=== PATIENT | male | born 1940 | race Caucasian/White ===

== ENCOUNTER 2021-11-08 14:17 | Observation (INO) ==
[2021-11-08] MEDS ORDERED: IOPAMIDOL 100 ML BOTTLE IV ONE (14:18)
[2021-11-08] MEDS ORDERED: LORazepam 2 MG/ML VIAL IV ONE (15:03)
--- NOTE | 2021-11-08 15:04 | Cat Scan Report ---
INDICATION: left UE weakness COMPARISON: Previous brain CT scans dated 10/18/2021, 07/18/2021, 10/25/2019 TECHNIQUE: Axial noncontrast-enhanced images through the brain. Sagittally and coronally reformatted images. FINDINGS: Cerebral hemispheres:No acute intracranial hemorrhage. No intra-axial hematoma. Large area of encephalomalacia consistent with old left middle cerebral artery territory infarction. This is unchanged. No new intra-axial attenuation abnormalities or localized mass effect. There is cerebral atrophy with ventricular enlargement. This is stable. Brainstem and cerebellum:No intra-axial abnormality Extra-axial:No acute hemorrhage. No subdural or epidural hematoma. No subarachnoid hemorrhage. Basilar cisterns are normal Calvarial:No calvarial fracture. No lytic lesion Temporal bones are negative. No destructive lesions Soft tissue, orbits, sinuses:Orbits and visualized facial soft tissues and paranasal sinuses are negative IMPRESSION: 1. 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 Cerebral atrophy with ventriculomegaly 3. No acute abnormality. No interval change since 10/18/2021 The exam was performed using radiation dose optimization techniques including, but not limited to, automated exposure control, adjustment of the mA and/or kV according to patient size and use of iterative reconstruction technique. Interpreted and Authenticated by: Gee Lara 11/08/21
[2021-11-08 15:07] LABS: POC Pro Time 23.4 (11.9-14.5)
--- NOTE | 2021-11-08 15:08 | Emergency Department Note ---
Neuro HPI <Cindy Clemens PA-C - Last Filed: 11/08/21 19:25> General Chief Complaint: Stroke Symptoms Stated Complaint: Stroke Time Seen by Provider: 11/08/21 14:40 Source: patient Mode of arrival: wheelchair Limitations: no limitations History of Present Illness HPI Narrative: 81-year-old male with history of stroke in October/2018 and residual dense right- sided hemiplegia with expressive aphasia and probable Warnicke's aphasia presents for left upper extremity weakness and inability to make a fist with loss of wrist extension. Last normal was 7 PM when he went to bed. His states that he woke up and showed her that he was unable to make a fist at about 530 this morning. The patient is on Eliquis for atrial fibrillation. Has a history of seizure disorder. Is on carvedilol for rate control of his A. fib. Takes a baby aspirin daily. EKG shows atrial fibrillation with rate of 64 bpm and no acute ST abnormalities to suggest ischemia. He does have PVCs. NIHSS is difficult to ascertain given his baseline deficits. Patient clearly has new left upper extremity weakness pe r his . The past medical history significant for chronic lower extremity edema and seizures. On Anticoagulants: Yes Related Data Home Medications Medication Instructions Recorded Confirmed glucosamine sulfate 500 mg tablet 500 mg PO DAILY tab 03/20/19 11/08/21 (Glucosamine) multivitamin 1 cap PO QAM 03/20/19 11/08/21 levetiracetam 500 mg tablet 2,000 mg PO QHS tab 09/21/20 11/08/21 (Keppra) cetirizine 10 mg tablet (Zyrtec) 10 mg PO DAILY 11/08/21 11/08/21 ferrous sulfate 325 mg (65 mg 325 mg PO DAILY 11/08/21 11/08/21 iron) tablet (Iron (ferrous sulfate)) Previous Rx's Medication Instructions Recorded aspirin 81 mg tablet,delayed 81 mg PO QDAY #1 tab 08/12/19 release (Aspir-) famotidine 20 mg tablet 20 mg PO QDAY #90 tab 07/12/20 apixaban 5 mg tablet (Eliquis) 5 mg PO BID #180 tab 12/06/20 atorvastatin 40 mg tablet 40 mg PO DAILY #90 tab 06/28/21 bumetanide 1 mg tablet 1 mg PO DAILY #90 tab 06/28/21 carvedilol 6.25 mg tablet 6.25 mg PO DAILY #90 tab 06/28/21 potassium chloride 20 mEq 40 meq PO DAILY #1 tab 07/19/21 tablet,extended release tramadol 50 mg tablet 50 mg PO BID PRN #30 tab 08/15/21 furosemide 20 mg tablet 20 mg PO BID #180 tab 10/17/21 Allergies Allergy/AdvReac Type Severity Reaction Status Date / Time No Known Drug Allergies Allergy Verified 11/08/21 14:21 Review of Systems <Cindy Clemens PA-C - Last Filed: 11/08/21 19:25> ROS ROS Narrative: Narrative: All systems ED: reviewed and negative except as stated. 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) Pruritus (Chronic) Allergic rhinitis with postnasal drip (Chronic) Dysphagia (Chronic) Chronic constipation (Chronic) Frequency of urination (Chronic) Lower urinary tract symptoms (Chronic) Expressive aphasia (Chronic) CVA (cerebral vascular accident) (Chronic) 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 Aphasia Cerebral infarction due to unspecified occlusion or stenosis of left middle cerebral artery October 2018. Residual deficits include expressive aphasia and right-sided hemiparesis. Continue Lipitor 40 mg daily. Check lipid panel. Start aspirin 81 mg daily. Blood pressure well controlled. No record of echocardiogram, will order echocardiogram with bubble study. Chronic constipation CVA (cerebral vascular accident) Dysarthria following cerebral infarction Dyslipidemia Dysphagia Dysphagia following cerebral infarction Essential hypertension Well-controlled. Takes carvedilol 6.25 mg once daily, and bumetanide 1 mg once daily. Expressive aphasia Secondary to CVA October 2018. Frequency of urination Gastro-esophageal reflux disease without esophagitis Well-controlled on famotidine. Hemiplegia and hemiparesis following unspecified cerebrovascular disease affecting right dominant side Hernia LLQ Hyperlipidemia, unspecified Well-controlled on Lipitor 40 mg daily Lower urinary tract symptoms Pruritus No rash. Counseled on warm rather than hot showers, showering every other day, Dove bar soap, apply moisturizer right after shower, and multiple times per day. Avoid scratching. Surgical History H/O left inguinal hernia repair 04/04/2019, Dr. Franco Ferreira. History of left inguinal hernia repair 04/04/2019 Status post insertion of percutaneous endoscopic gastrostomy (PEG) tube Family History Father Heart disease Other HTN (hypertension) Social History Smoking Status: Former smoker Alcohol Intake Frequency: holiday/special occasion only Exam <Cindy Clemens PA-C - Last Filed: 11/08/21 19:25> Narrative Narrative: General: AOx3, NAD, nontoxic appearing. Pleasant and conversant. HEENT: PERRL, EOMI, normocephalic. Moist mucous membranes. Normal facies and normal dentition. Chest: Symmetric, no pain to palpation Respiratory: Lungs clear to auscultation bilaterally. No respiratory distress. Unlabored breathing. Heart: Regular rate and rhythm, no murmurs/clicks/rubs. Abdomen: Non-tender, Non distended, normal bowel tones. No organomegaly. Extremities: Warm and well perfused. No edema. DP 2+ bilaterally. No venous stasis. Neuro: No focal deficits. Cranial nerves II-XII grossly normal. Right partial facial paralysis per with droop of the right corner of the mouth. Patient has expressive aphasia, which is also baseline per his . He has dense hemiplegia in the right side, also baseline. Regarding his left upper extremity and left lower extremity pronator drift is negative. He has loss of wrist extension and weakness with making a fist. He is sensate to light touch throughout. Biceps and triceps is 5/5 with resistance. Skin: Warm dry, no rashes or lesions, no cyanosis. Psych: Normal mood and affect Heme/Lymph: No abnormal bruising General Limitations: no limitations Course <Cindy Clemens PA-C - Last Filed: 11/08/21 19:25> Course Course Narrative: 81-year-old male presents with new onset left upper extremity weakness Reevaluation(s) Reevaluation #1: Given time of onset was less than 24 hours code stroke was called. I discussed with the telestroke neurologist and they recommend CTA of the head and neck and if LVO is present then endovascular consult. CT of the head is negative for acute intracranial bleeding or findings. And shows old left middle cerebral artery infarct with encephalomalacia and no changes from 10/18/2021. Reevaluation #2: CTA of the head and neck shows no intracranial branch occlusion, no [place] occlusion, no aneurysm, no AVM and normal vertebral arteries. No hemodynamically significant carotid artery stenosis. No evidence of LVO. I spoke with Dr. Pierce, stroke neurology and he recommends admission with MRI and continuation of his Eliquis/aspirin/atorvastatin. Vital Signs Vital signs: Vital Signs Temperature 97.5 F 11/08/21 14:18 Pulse Rate 84 11/08/21 14:18 Respiratory Rate 18 11/08/21 14:18 Blood Pressure 110/59 11/08/21 14:18 Pulse Oximetry (%) 98 11/08/21 14:18 Temperature 97.5 F 11/08/21 14:18 Pulse Rate 75 11/08/21 18:31 Respiratory Rate 21 11/08/21 19:01 Blood Pressure 101/54 11/08/21 19:01 Pulse Oximetry (%) 100 11/08/21 18:31 MDM <Cindy Clemens PA-C - Last Filed: 11/08/21 19:25> MDM Narrative Medical decision making narrative: Left upper extremity neurological deficits consistent with stroke No evidence of large vessel occlusion or intracranial bleed on imaging today. I have spoken with Dr. Pierce, stroke neurology and he recommends admission with observation MRI in the next day or 2. Patient will likely need PT OT and skilled therapies given his new deficits. I have reached out to the hospitalist for admission and and waiting a call back. Hospitalist has accepted the patient for admission. Lab Data Result diagrams: 11/08/21 15:00 11/08/21 15:00 Labs: Lab Results 11/08/21 11/08/21 11/08/21 Range/Units 15:00 15:00 15:00 WBC 6.2 (4.5-11.0) K/mcL RBC 4.28 L (4.63-6.08) M/mcL Hgb 11.6 L (13.7-17.5) g/dL Hct 37.8 L (40.1-51.0) % MCV 88.3 (80.0-100.0) fL MCH 27.1 (26.0-34.0) pg MCHC 30.7 L (31.0-36.0) g/dL RDW 15.1 H (11.5-14.5) % Plt Count 276 (140-440) K/mcL MPV 9.9 (7.4-10.4) fL Neut % (Auto) 62.1 (38.0-78.0) % Lymph % (Auto) 23.8 (15.5-49.0) % [place] % (Auto) 9.3 (1.0-12.0) % Eos % (Auto) 4.2 (0.0-7.0) % Baso % (Auto) 0.6 (0.0-2.0) % Lymph # (Auto) 1.48 L (1.50-4.80) K/mcL [place] # (Auto) 0.58 (0.10-0.90) K/mcL Eos # (Auto) 0.26 (0.00-0.70) K/mcL Baso # (Auto) 0.04 (0.00-0.30) K/mcL Absolute Neutrophils 3.85 (1.80-8.00) K/mcL POC PT (11.9-14.5) PT 16.3 H (11.9-14.5) sec POC INR (0.8-1.2) INR 1.3 H (0.9-1.1) APTT 37.5 H (20.0-37.0) sec Sodium 138 (133-145) mmol/L Potassium 4.2 (3.3-5.1) mmol/L Chloride 101 (96-108) mmol/L Carbon Dioxide 28 (22-30) mmol/L Anion Gap 9.0 (8.0-16.0) BUN 18 (8-23) mg/dL Creatinine 1.0 (0.7-1.2) mg/dL GFR Calculation 69 Glucose 122 H (70-105) mg/dL Calcium 9.4 (8.6-10.4) mg/dL Total Bilirubin 0.8 (0.1-1.0) mg/dL AST 28 (<40) U/L ALT 20 (<40) U/L Alkaline Phosphatase 106 (39-117) U/L Troponin T (<0.03) ng/mL Total Protein 6.6 (5.9-8.4) gm/dL Albumin 3.6 (3.2-5.2) gm/dL Globulin 3.0 (2.2-3.7) gm/dL Albumin/Globulin Ratio 1.2 (1.0-2.3) 11/08/21 11/08/21 Range/Units 15:00 15:03 WBC (4.5-11.0) K/mcL RBC (4.63-6.08) M/mcL Hgb (13.7-17.5) g/dL Hct (40.1-51.0) % MCV (80.0-100.0) fL MCH (26.0-34.0) pg MCHC (31.0-36.0) g/dL RDW (11.5-14.5) % Plt Count (140-440) K/mcL MPV (7.4-10.4) fL Neut % (Auto) (38.0-78.0) % Lymph % (Auto) (15.5-49.0) % [place] % (Auto) (1.0-12.0) % Eos % (Auto) (0.0-7.0) % Baso % (Auto) (0.0-2.0) % Lymph # (Auto) (1.50-4.80) K/mcL [place] # (Auto) (0.10-0.90) K/mcL Eos # (Auto) (0.00-0.70) K/mcL Baso # (Auto) (0.00-0.30) K/mcL Absolute Neutrophils (1.80-8.00) K/mcL POC PT 23.4 H (11.9-14.5) PT (11.9-14.5) sec POC INR 2.0 H (0.8-1.2) INR (0.9-1.1) APTT (20.0-37.0) sec Sodium (133-145) mmol/L Potassium (3.3-5.1) mmol/L Chloride (96-108) mmol/L Carbon Dioxide (22-30) mmol/L Anion Gap (8.0-16.0) BUN (8-23) mg/dL Creatinine (0.7-1.2) mg/dL GFR Calculation Glucose (70-105) mg/dL Calcium (8.6-10.4) mg/dL Total Bilirubin (0.1-1.0) mg/dL AST (<40) U/L ALT (<40) U/L Alkaline Phosphatase (39-117) U/L Troponin T 0.02 (<0.03) ng/mL Total Protein (5.9-8.4) gm/dL Albumin (3.2-5.2) gm/dL Globulin (2.2-3.7) gm/dL Albumin/Globulin Ratio (1.0-2.3) Discharge Plan Patient/Caregiver Discharge Instructions Pt seen by DIRECTOR PACKAGING/PA only: Yes Clinical Impression: CVA (cerebral vascular accident) Patient Disposition: Xfer As Inpt ([facility]) Follow up with: Gee Ochoa DO [Primary Care Provider] - Prescriptions: No Action famotidine 20 mg tablet 20 mg PO QDAY Qty: 90 3RF Eliquis 5 mg tablet 5 mg PO BID Qty: 180 3RF atorvastatin 40 mg tablet 40 mg PO DAILY Qty: 90 3RF bumetanide 1 mg tablet 1 mg PO DAILY Qty: 90 3RF carvedilol 6.25 mg tablet 6.25 mg PO DAILY Qty: 90 3RF tramadol 50 mg tablet 50 mg PO BID PRN (Reason: pain) Qty: 30 2RF furosemide 20 mg tablet 20 mg PO BID Qty: 180 3RF multivitamin capsule 1 cap PO QAM 0RF glucosamine sulfate [Glucosamine] 500 mg tablet 500 mg PO DAILY 0RF aspirin [Aspir-81] 81 mg tablet,delayed release (DR/EC) 81 mg PO QDAY Qty: 1 0RF levetiracetam [Keppra] 500 mg tablet 2,000 mg PO QHS 0RF potassium chloride 20 mEq tablet extended release 40 meq PO DAILY Qty: 1 0RF cetirizine [Zyrtec] 10 mg Tablet 10 mg PO DAILY 0RF ferrous sulfate [Iron (ferrous sulfate)] 325 mg (65 mg iron) Tablet 325 mg PO DAILY 0RF
[2021-11-08 16:04] LABS: Basophils # (Auto) 0.04 K/mcL (0.00-0.30); Basophils % (Auto) 0.6 % (0.0-2.0); Eosinophils # (Auto) 0.26 K/mcL (0.00-0.70); Eosinophils % (Auto) 4.2 % (0.0-7.0); Hematocrit 37.8 % (40.1-51.0); Hemoglobin 11.6 g/dL (13.7-17.5); Lymphocytes # (Auto) 1.48 K/mcL (1.50-4.80); Lymphocytes % (Auto) 23.8 % (15.5-49.0); Mean Cell Volume 88.3 fL (80.0-100.0); Mean Corpuscular HGB Conc 30.7 g/dL (31.0-36.0); Mean Platelet Volume 9.9 fL (7.4-10.4); Monocytes # (Auto) 0.58 K/mcL (0.10-0.90); Monocytes % (Auto) 9.3 % (1.0-12.0); Neutrophils % (Auto) 62.1 % (38.0-78.0); Platelet Count 276 K/mcL (140-440); RBC 4.28 M/mcL (4.63-6.08); Red Cell Distribution Width 15.1 % (11.5-14.5); WBC 6.2 K/mcL (4.5-11.0)
[2021-11-08 16:24] LABS: ALT/SGPT 20 U/L (<40); AST/SGOT 28 U/L (<40); Albumin 3.6 gm/dL (3.2-5.2); Albumin/Globulin Ratio 1.2 (1.0-2.3); Alkaline Phosphatase 106 U/L (39-117); Bilirubin,Total 0.8 mg/dL (0.1-1.0); Blood Urea Nitrogen 18 mg/dL (8-23); Calcium 9.4 mg/dL (8.6-10.4); Carbon Dioxide 28 mmol/L (22-30); Chloride 101 mmol/L (96-108); Glomerular Filtration Rate 69; Glucose 122 mg/dL (70-105); INR 1.3 (0.9-1.1); Partial Thromboplastin Time 37.5 sec (20.0-37.0); Prothrombin Time 16.3 sec (11.9-14.5)
--- NOTE | 2021-11-08 16:39 | Cat Scan Report ---
INDICATION: stroke COMPARISON: Noncontrast enhanced brain CT scans dated 11/08/2021, 10/18/2021 TECHNIQUE: Axial images were obtained through the upper chest, neck, and head during arterial phase. MIP and CPR reformatted images. 80ml Isovue 370 injected intravenously. FINDINGS: AORTIC ARCH: Minimal calcified atherosclerotic plaque. Origins of the left subclavian artery, left vertebral artery, left common carotid artery, innominate artery, right common carotid artery, right subclavian artery, right vertebral artery are negative. No origin stenosis. CAROTID ARTERIES:Right: Right common carotid artery is negative. No stenosis or occlusion. Calcified plaque at the origin of the right internal carotid artery. No hemodynamically significant stenosis or evidence for ulceration. There is no soft plaque or thrombus. Right internal carotid artery is otherwise negative. No stenosis or occlusion. No fibromuscular dysplasia or dissection. Left: Left common carotid artery is negative. No stenosis or occlusion Calcified plaque at the origin of left internal carotid artery. No significant stenosis. No evidence for ulceration. There is no soft plaque or thrombus. Left internal carotid artery is otherwise negative. There is no stenosis or occlusion. No dissection or evidence for fibromuscular dysplasia VERTEBRAL ARTERIES:Vertebral arteries are patent without stenosis or occlusion [place]:[Cavernous and supraclinoid internal carotid arteries are negative. No significant stenosis or occlusion. M1 segments of the middle cerebral arteries and A1 segments of the anterior cerebral arteries are negative. Intracranial vertebral arteries and basilar artery are negative. Posterior cerebral arteries and superior cerebellar arteries are negative] INTRACRANIAL CIRCULATION:No intracranial branch occlusion. No arteriovenous malformation or aneurysm No dural sinus occlusion UPPER CHEST:There are pleural calcifications in the left upper hemithorax. There is a focal subpleural pulmonary parenchymal density. This is masslike and malignancy is possible. This may be benign scarring. Scan of the chest may be appropriate for further evaluation. NECK:No solid or cystic soft tissue mass. No pathologic lymphadenopathy. BRAIN:Large area of encephalomalacia consistent with chronic infarction left middle cerebral artery distribution. No intracranial hemorrhage. No intra-axial enhancement or localized mass effect. IMPRESSION: 1. Calcified plaque in the proximal internal carotid artery bilaterally. There is no significant soft plaque or ulceration. There is no hemodynamically significant stenosis 2. Negative [place]. No branch occlusion 3. Large area of encephalomalacia in the left middle cerebral artery distribution 4. Pleural calcification and pleural based mass density in the left upper lobe. Chest CT scan recommended further evaluation is appropriate The exam was performed using radiation dose optimization techniques including, but not limited to, automated exposure control, adjustment of the mA and/or kV according to patient size and use of iterative reconstruction technique. Interpreted and Authenticated by: Gee Lara 11/08/21
[2021-11-08] MEDS ORDERED: 0.9 % SODIUM CHLORIDE 500 ML IV ONE ×2 (17:04→20:38)
--- NOTE | 2021-11-08 19:24 | Internal Med History&Physical ---
HPI History of Present Illness Patient information: Note initiated : 11/08/21 at 7:17 pm Service Date, if different from initiated Date: [] Patient: Connor Roy a 81 y/o M admitted on for Stroke. Chief Complaint: [] History of present illness: Mr. Roy is a 81 year old M Brought into ED by because of left upper extremity weakness. History is obtained from chart and notes as patient has expressive aphasia. Per when he woke up he showed her that he was unable to make a fist. 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 According to nurse he did take his aspirin this morning. In the ED he had a CTA of the head and neck which showed no acute findings or thrombosis but did show the left hemispheric encephalomalacia from the previous stroke. Case discussed with stroke neurology [place] who recommended observation and MRI. 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) Pruritus (Chronic) Allergic rhinitis with postnasal drip (Chronic) Dysphagia (Chronic) Chronic constipation (Chronic) Frequency of urination (Chronic) Lower urinary tract symptoms (Chronic) Expressive aphasia (Chronic) CVA (cerebral vascular accident) (Chronic) 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 Aphasia Cerebral infarction due to unspecified occlusion or stenosis of left middle cerebral artery October 2018. Residual deficits include expressive aphasia and right-sided hemiparesis. Continue Lipitor 40 mg daily. Check lipid panel. Start aspirin 81 mg daily. Blood pressure well controlled. No record of echocardiogram, will order echocardiogram with bubble study. Chronic constipation CVA (cerebral vascular accident) Dysarthria following cerebral infarction Dyslipidemia Dysphagia Dysphagia following cerebral infarction Essential hypertension Well-controlled. Takes carvedilol 6.25 mg once daily, and bumetanide 1 mg once daily. Expressive aphasia Secondary to CVA October 2018. Frequency of urination Gastro-esophageal reflux disease without esophagitis Well-controlled on famotidine. Hemiplegia and hemiparesis following unspecified cerebrovascular disease affecting right dominant side Hernia LLQ Hyperlipidemia, unspecified Well-controlled on Lipitor 40 mg daily Lower urinary tract symptoms Pruritus No rash. Counseled on warm rather than hot showers, showering every other day, Dove bar soap, apply moisturizer right after shower, and multiple times per day. Avoid scratching. Surgical History H/O left inguinal hernia repair 04/04/2019, Dr. Franco Ferreira. History of left inguinal hernia repair 04/04/2019 Status post insertion of percutaneous endoscopic gastrostomy (PEG) tube Family History Father Heart disease Other HTN (hypertension) Social History marital status: occupational status: retired smoking status: Former smoker quit date: 06/11/04 alcohol intake frequency: holiday/special occasion only MEDS/ALLERGIES Home Medications and Allergies Home Medications Medication Instructions Recorded Confirmed Type glucosamine sulfate 500 mg tablet 500 mg PO DAILY tab 03/20/19 11/08/21 History (Glucosamine) multivitamin 1 cap PO QAM 03/20/19 11/08/21 History aspirin 81 mg tablet,delayed 81 mg PO QDAY #1 tab 08/12/19 11/08/21 Rx release (Aspir-) famotidine 20 mg tablet 20 mg PO QDAY #90 tab 07/12/20 11/08/21 Rx levetiracetam 500 mg tablet 2,000 mg PO QHS tab 09/21/20 11/08/21 History ([place]ri[place]) apixaban 5 mg tablet (Eliquis) 5 mg PO BID #180 tab 12/06/20 11/08/21 Rx atorvastatin 40 mg tablet 40 mg PO DAILY #90 tab 06/28/21 11/08/21 Rx bumetanide 1 mg tablet 1 mg PO DAILY #90 tab 06/28/21 11/08/21 Rx carvedilol 6.25 mg tablet 6.25 mg PO DAILY #90 tab 06/28/21 11/08/21 Rx potassium chloride 20 mEq 40 meq PO DAILY #1 tab 07/19/21 11/08/21 Rx tablet,extended release tramadol 50 mg tablet 50 mg PO BID PRN #30 tab 08/15/21 11/08/21 Rx furosemide 20 mg tablet 20 mg PO BID #180 tab 10/17/21 11/08/21 Rx cetirizine 10 mg tablet (Zyrtec) 10 mg PO DAILY 11/08/21 11/08/21 History ferrous sulfate 325 mg (65 mg 325 mg PO DAILY 11/08/21 11/08/21 History iron) tablet (Iron (ferrous sulfate)) Allergies Allergy/AdvReac Type Severity Reaction Status Date / Time No Known Drug Allergies Allergy Verified 11/08/21 14:21 EXAM Constitutional Vitals: Temp Pulse Resp BP Pulse Ox 97.5 F 75 14 96/58 100 11/08/21 14:18 11/08/21 18:31 11/08/21 18:56 11/08/21 18:31 11/08/21 18:31 Exam: General: Alert, Awake, No acute Distress Eyes/N/T: EOMI, PERRL, Head/Neck: neck supple, normocephalic atraumatic CV: irreg irreg, No murmurs, normal s1/s2 Pulm: Clear b/l, no wheezing/rhonchi/rales Abd: soft, nontender, +BS x4 Ext: no clubbing/cyanosis, b/l LE 2-3+ edema Neuro: Right-sided hemiplegia chronic, left side weakness UE>LE, follows commands, expressive aphasia Skin: warm/dry DATA Data Completed and Pending Labs: Labs from last 24 hours 11/08/21 11/08/21 11/08/21 15:03 15:00 15:00 WBC RBC Hgb Hct MCV MCH MCHC RDW Plt Count MPV Neut % (Auto) Lymph % (Auto) [place] % (Auto) Eos % (Auto) Baso % (Auto) Lymph # (Auto) [place] # (Auto) Eos # (Auto) Baso # (Auto) Absolute Neutrophils POC PT 23.4 H PT POC INR 2.0 H INR APTT Sodium 138 Potassium 4.2 Chloride 101 Carbon Dioxide 28 Anion Gap 9.0 BUN 18 Creatinine 1.0 GFR Calculation 69 Glucose 122 H Calcium 9.4 Total Bilirubin 0.8 AST 28 ALT 20 Alkaline Phosphatase 106 Troponin T 0.02 Total Protein 6.6 Albumin 3.6 Globulin 3.0 Albumin/Globulin Ratio 1.2 11/08/21 11/08/21 15:00 15:00 WBC 6.2 RBC 4.28 L Hgb 11.6 L Hct 37.8 L MCV 88.3 MCH 27.1 MCHC 30.7 L RDW 15.1 H Plt Count 276 MPV 9.9 Neut % (Auto) 62.1 Lymph % (Auto) 23.8 [place] % (Auto) 9.3 Eos % (Auto) 4.2 Baso % (Auto) 0.6 Lymph # (Auto) 1.48 L [place] # (Auto) 0.58 Eos # (Auto) 0.26 Baso # (Auto) 0.04 Absolute Neutrophils 3.85 POC PT PT 16.3 H POC INR INR 1.3 H APTT 37.5 H Sodium Potassium Chloride Carbon Dioxide Anion Gap BUN Creatinine GFR Calculation Glucose Calcium Total Bilirubin AST ALT Alkaline Phosphatase Troponin T Total Protein Albumin Globulin Albumin/Globulin Ratio A/P Narrative A/P Narrative: A: *Left UE weakness: -ABCD=5 *h/o CVA w/residual Right hemiplegia and Expressive Aphasia: *Permanent Afib: on apixaban and ASA and BB *h/o Seizure d/o: on keppra *Generalized weakness/deconditioning/debility/poor functional status: wheelchair bound *Anemia, chronic, BI: cont iron *GERD: *Peripheral edema: On diuretics P: -cont apixaban/asa/statin -MRI/echo pending -Permissive HTN if develops -hold diuretics for now and IV hydrate -Comp wraps and elevate legs -cont BB -cont keppra -check UA -IVF -ST eval -CM for placement -ppx: Apixaban/home H2 Time Spent With Patient Time: Total time spent is greater than 50% in coordination of care (as documented) at patient's floor/unit and/or counseling patient: Total time spent with greater than 50% in coordination of care (as documented) at patient's floor/unit and/or counseling patient:: Greater than 70 minutes
[2021-11-08] MEDS ORDERED: SENNOSIDES 1 TABLET PO PRN (20:38)
[2021-11-08] MEDS ORDERED: METOPROLOL TARTRATE 5 MG/5 ML VIAL IV PRN (20:38)
[2021-11-08] MEDS ORDERED: IPRATROPIUM/ALBUTEROL 3 ML AMPUL.NEB NEB PRN (20:38)
[2021-11-08] MEDS ORDERED: traMADol (PP) 50 MG TABLET (#4) PO PRN (20:38)
[2021-11-08] MEDS ORDERED: MAGNESIUM SULFATE 2 GM/50 ML BAG IV PRN (20:38)
[2021-11-08] MEDS ORDERED: POTASSIUM CHLORIDE 20 MEQ TABLET PO PRN ×2 (20:38)
[2021-11-08] MEDS ORDERED: POTASSIUM CHLORIDE 40 MEQ in DEXTROSE 5% IN WATER 500 ML IV PRN (20:38)
[2021-11-08] MEDS ORDERED: POLYETHYLENE GLYCOL 3350 17 GM PACKET PO PRN (20:38)
[2021-11-08] MEDS ORDERED: ONDANSETRON 4 MG/2 ML VIAL IV PRN (20:38)
[2021-11-08] MEDS: DOCUSATE SODIUM 100 MG CAPSULE PO SCH (21:23)
[2021-11-08] MEDS: levETIRAcetam 500 MG TABLET PO SCH (21:23)
[2021-11-08] MEDS: APIXABAN 5 MG TABLET PO SCH (21:23)
[2021-11-08] MEDS: 0.9 % SODIUM CHLORIDE 10 ML SYRINGE IV SCH (21:24)
[2021-11-08] MEDS: traMADol 50 MG TABLET PO PRN (22:24)
[2021-11-08 23:35] LABS: Appearance,Urine Clear (Clear); Bilirubin,Urine Negative (Negative); Color,Urine Yellow; Culture Indicated,Urine No; Glucose,Urine (UA) Negative (Negative); Ketones,Urine Trace mg/dL (Negative); Leukocyte Esterase,Urine Negative /uL (Negative); Nitrate,Urine Negative (Negative); PH,Urine 6.5 (5.0-9.0); Protein,Urine Negative (Negative); Specific Gravity,Urine 1.015 (1.000-1.035); Urine Blood Negative ery/mcL (Negative); Urobilinogen,Urine Normal
[2021-11-09] MEDS: 0.9 % SODIUM CHLORIDE 10 ML SYRINGE IV SCH ×3 (05:55→20:20)
[2021-11-09 07:00] LABS: ALT/SGPT 16 U/L (<40); AST/SGOT 24 U/L (<40); Albumin 2.9 gm/dL (3.2-5.2); Albumin/Globulin Ratio 1.1 (1.0-2.3); Alkaline Phosphatase 88 U/L (39-117); Bilirubin,Direct 0.2 mg/dL (<0.3); Bilirubin,Total 0.8 mg/dL (0.1-1.0); Blood Urea Nitrogen 11 mg/dL (8-23); Calcium 8.8 mg/dL (8.6-10.4); Carbon Dioxide 25 mmol/L (22-30); Chloride 105 mmol/L (96-108); Globulin 2.7 gm/dL (2.2-3.7); Glomerular Filtration Rate 78; Glucose 90 mg/dL (70-105); Lactate Dehydrogenase 208 U/L (135-225); Triglycerides 48 mg/dL (<150); Uric Acid 6.5 mg/dL (2.5-8.0)
[2021-11-09] MEDS: APIXABAN 5 MG TABLET PO SCH ×2 (07:57→20:20)
[2021-11-09] MEDS: DOCUSATE SODIUM 100 MG CAPSULE PO SCH ×2 (07:57→20:21)
[2021-11-09] MEDS: ASPIRIN 81 MG TAB.CHEW PO SCH (07:57)
[2021-11-09] MEDS: ATORVASTATIN 40 MG TABLET PO SCH (07:57)
[2021-11-09] MEDS: FAMOTIDINE 20 MG TABLET PO SCH (07:57)
--- NOTE | 2021-11-09 08:09 | Internal Med Progress Note ---
SUBJECTIVE Subjective Patient information: Note initiated : 11/09/21 at 8:05 am Service Date, if different from initiated Date: [] Patient: Connor Roy 81 y/o M admitted on 11/08/21 for Stroke. Chief Complaint: [] Interval history: History of present illness: Mr. Roy is a 81 year old M Brought into ED by because of left upper extremity weakness. History is obtained from chart and notes as patient has expressive aphasia. Per when he woke up he showed her that he was unable to make a fist. 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 According to nurse he did take his aspirin this morning. In the ED he had a CTA of the head and neck which showed no acute findings or thrombosis but did show the left hemispheric encephalomalacia from the previous stroke. Case discussed with stroke neurology [place] who recommended observation and MRI. 11/09 Seems to move his left hand more today. Awaiting MRI. Echo pending. Vital signs stable. Review of Systems: Unable to obtain due to expressive aphasia Constitutional Vitals: Vital Signs Temp Pulse Resp BP Pulse Ox 98.7 F 73 15 137/77 100 11/09/21 00:01 11/09/21 06:57 11/09/21 06:57 11/09/21 06:01 11/09/21 06:57 Period Temp Pulse Resp BP Sys/Garcia Pulse Ox Last 24 Hr 97.5 F-98.7 F 56-84 10-31 91-142/47-77 95-100 Intake and Output 11/08/21 11/09/21 11/09/21 21:59 05:59 13:59 Intake Total 500 920 Output Total 600 125 Balance 500 320 -125 Weight 82.418 kg Intake & Output: Intake & Output 11/08/21 11/09/21 11/09/21 21:59 05:59 13:59 Intake Total 500 920 Output Total 600 125 Balance 500 320 -125 Weight 82.418 kg Intake: IV 500 500 Sodium Chloride 0.9% 500 ml @ 500 75 mls/hr IV .[id number] ONE Rx#: [id number] Sodium Chloride 0.9% 500 ml @ 500 Wide Open IV BOLUS ONE Rx#: [id number] Oral 420 Output: Urine Catheter Amount 350 Straight 350 Void Amount 250 125 Other: Urine Appearance Clear Clear Straight Clear Urine Color Dark Yellow Dark Yellow Straight Dark Yellow Exam: General: Alert, Awake, No acute Distress Eyes/N/T: EOMI, Head/Neck: neck supple, CV: irreg irreg, No murmurs, Pulm: Lear b/l, no wheezing/rhonchi/rales Abd: soft, nontender, +BS x4 Ext: no clubbing/cyanosis, b/l LE 2-3+ edema Neuro: Right-sided hemiplegia chronic, left hand weakness, able to make a fist today, follows commands, expressive aphasia Skin: warm/dry OBJ DATA Labs CBC & Chem 7: 11/08/21 15:00 11/09/21 05:27 Labs: Abnormal Lab Results 11/09/21 11/08/21 11/08/21 05:27 23:01 15:03 RBC Hgb Hct MCHC RDW Lymph # (Auto) POC PT 23.4 H PT POC INR 2.0 H INR APTT Glucose Total Protein 5.6 L Albumin 2.9 L Urine Ketones Trace A 11/08/21 11/08/21 11/08/21 15:00 15:00 15:00 RBC 4.28 L Hgb 11.6 L Hct 37.8 L MCHC 30.7 L RDW 15.1 H Lymph # (Auto) 1.48 L POC PT PT 16.3 H POC INR INR 1.3 H APTT 37.5 H Glucose 122 H Total Protein Albumin Urine Ketones Meds: Medications Acetaminophen (Acetaminophen 325 Mg Tablet) 650 mg PO Q6HP PRN; Protocol PRN Reason: Per Pain Protocol/Fever > 101 Albuterol/Ipratropium (Ipratropium/Albuterol 3 Ml Ampul.Neb) 3 ml NEB Q4HP PRN PRN Reason: Shortness Of Breath Apixaban (Apixaban 5 Mg Tablet) 5 mg PO BID [facility] Last Admin: 11/09/21 07:57 Dose: 5 mg Documented by: Aspirin (Aspirin 81 Mg Tab.Chew) 81 mg PO QDAY [facility] Last Admin: 11/09/21 07:57 Dose: 81 mg Documented by: Atorvastatin Calcium (Atorvastatin 40 Mg Tablet) 40 mg PO DAILY [facility] Last Admin: 11/09/21 07:57 Dose: 40 mg Documented by: Carvedilol (Carvedilol 6.25 Mg Tablet) 6.25 mg PO DAILY [facility] Last Admin: 11/09/21 07:57 Dose: 6.25 mg Documented by: Docusate Sodium (Docusate Sodium 100 Mg Capsule) 100 mg PO BID [facility] Last Admin: 11/09/21 07:57 Dose: 100 mg Documented by: Famotidine (Famotidine 20 Mg Tablet) 20 mg PO QDAY [facility] Last Admin: 11/09/21 07:57 Dose: 20 mg Documented by: Potassium Chloride 40 meq/ (Dextrose) 520 mls @ 130 mls/hr IV UD PRN PRN Reason: Potassium < 3 Magnesium Sulfate (Magnesium Sulfate) 2 gm in 50 mls @ 50 mls/hr IV UD PRN PRN Reason: Magnesium </= 1.6 Levetiracetam (Levetiracetam 500 Mg Tablet) 2,000 mg PO QHS [facility] Last Admin: 11/08/21 21:23 Dose: 2,000 mg Documented by: Metoprolol Tartrate (Metoprolol Tartrate 5 Mg/5 Ml Vial) 5 mg IV Q2HP PRN PRN Reason: Tachyarrhythmias HR>110 Ondansetron HCl (Ondansetron 4 Mg/2 Ml Vial) 4 mg IV Q4HP PRN PRN Reason: Nausea And Vomiting Polyethylene Glycol (Polyethylene Glycol 3350 17 Gm Packet) 17 gm PO DAILYP PRN PRN Reason: Constipation Potassium Chloride (Potassium Chloride 20 Meq Tablet) 40 meq PO UD PRN PRN Reason: Potssium is 3-3.5 Potassium Chloride (Potassium Chloride 20 Meq Tablet) 40 meq PO UD PRN PRN Reason: Potassium < 3 Senna (Sennosides 1 Tablet) 2 tab PO DAILYP PRN PRN Reason: Constipation Sodium Chloride (0.9 % Sodium Chloride 10 Ml Syringe) 10 ml IV Q8 [facility] Last Admin: 11/09/21 05:55 Dose: 10 ml Documented by: Tramadol HCl (Tramadol 50 Mg Tablet) 50 mg PO BIDP PRN; Protocol PRN Reason: Per Pain Protocol Last Admin: 11/08/21 22:24 Dose: 50 mg Documented by: A/P Narrative A/P Narrative: A: *Left UE weakness: -ABCD=5 *h/o CVA w/residual Right hemiplegia and Expressive Aphasia: *Permanent Afib: on apixaban and ASA and BB *h/o Seizure d/o: on keppra *Generalized weakness/deconditioning/debility/poor functional status: wheelchair bound *Anemia, chronic, BI: cont iron *GERD: *Peripheral edema: On diuretics P: -cont apixaban/asa/statin -MRI/echo pending -Permissive HTN if develops -hold diuretics for now and IV hydrate -Comp wraps and elevate legs -restart home BB gradually -cont keppra -s/p IVF -ST eval -CM for placement -ppx: Apixaban/home H2 DNR Time Spent With Patient Time: Total time spent is greater than 50% in coordination of care (as documented) at patient's floor/unit and/or counseling patient: Total time spent with greater than 50% in coordination of care (as documented) at patient's floor/unit and/or counseling patient:: 25 - 35 minutes QUALITY Stroke Symptom Onset Unknown: Yes
[2021-11-09] MEDS ORDERED: CARVEDILOL 6.25 MG TABLET PO SCH ×2 (09:00)
--- NOTE | 2021-11-09 13:28 | Discharge Summary ---
Discharge Provider Provider IMPORTANT FOLLOW-UP INFORMATION FOR PCP: Patient information: Note initiated : 11/09/21 at 1:26 pm Service Date, if different from initiated Date: [] Patient: Connor Roy 81 y/o M admitted on 11/08/21 for Stroke. Chief Complaint: [] Date of admission: 11/08/21 20:27 Primary care physician: Gee Ochoa DO Consults: 11/08/21 14:44 Consult to Physician [CONS] Stat Comment: Consulting Provider: Telestroke,Provider Reason For Exam: Physician to Consult 11/08/21 18:07 Consult to Physician [CONS] Stat Comment: Consulting Provider: Carl Back Reason For Exam: Physician to Consult COURSE Hospital Course Hospital course: History of present illness: Mr. Roy is a 81 year old M Brought into ED by because of left upper extremity weakness. History is obtained from chart and notes as patient has expressive aphasia. Per when he woke up he showed her that he was unable to make a fist. 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 According to nurse he did take his aspirin this morning. In the ED he had a CTA of the head and neck which showed no acute findings or thrombosis but did show the left hemispheric encephalomalacia from the previous stroke. Case discussed with stroke neurology [place] who recommended observation and MRI. 11/09 Seems to move his left hand more today. Awaiting MRI. Echo pending. Vital signs stable. 11/10 No changes overnight. Patient moving his left arm, suspect back to baseline. MRI showed no acute stroke. A: *Left UE/hand weakness: ?etiology -ABCD=5 -MRI not showing any acute infarct *h/o CVA w/residual Right hemiplegia and Expressive Aphasia: *Permanent Afib: on apixaban and ASA and BB *h/o Seizure d/o: on keppra *Generalized weakness/deconditioning/debility/poor functional status: wheelchair bound *Oropharyngeal Dysphagia, Moderate: *Anemia, chronic, BI: cont iron *GERD: *Peripheral edema: On diuretics P: -CM for placement Discharge diagnosis: Strokelike symptoms history of stroke Secondary discharge diagnosis: Room and A. fib history of seizure generalized weakness deconditioning poor functional status GERD peripheral edema anemia Time Spent with Patient Time attestation: Total time spent providing and/or coordinating discharge services: Time spent: Greater than 30 minutes EXAM Constitutional Vitals: Temp Pulse Resp BP Pulse Ox 97.8 F 65 12 109/61 100 11/09/21 12:01 11/09/21 08:01 11/09/21 12:06 11/09/21 12:01 11/09/21 12:06 Discharge Data Data Completed and Pending Labs on day of discharge: Labs from last 24 hours 11/09/21 11/08/21 11/08/21 05:27 23:01 15:03 WBC RBC Hgb Hct MCV MCH MCHC RDW Plt Count MPV Neut % (Auto) Lymph % (Auto) [place] % (Auto) Eos % (Auto) Baso % (Auto) Lymph # (Auto) [place] # (Auto) Eos # (Auto) Baso # (Auto) Absolute Neutrophils POC PT 23.4 H PT POC INR 2.0 H INR APTT Sodium 139 Potassium 4.2 Chloride 105 Carbon Dioxide 25 Anion Gap 9.0 BUN 11 Creatinine 0.9 GFR Calculation 78 Glucose 90 Uric Acid 6.5 Calcium 8.8 Phosphorus 3.0 Magnesium 1.8 Total Bilirubin 0.8 Direct Bilirubin 0.2 GGT 15 AST 24 ALT 16 Alkaline Phosphatase 88 Lactate Dehydrogenase 208 Troponin T Total Protein 5.6 L Albumin 2.9 L Globulin 2.7 Albumin/Globulin Ratio 1.1 Triglycerides 48 Urine Color Yellow Urine Appearance Clear Urine pH 6.5 Ur Specific [place] 1.015 Urine Protein Negative Urine Glucose (UA) Negative Urine Ketones Trace A Urine Occult Blood Negative Urine Nitrate Negative Urine Bilirubin Negative Urine Urobilinogen Normal Ur Leukocyte Esterase Negative Ur Culture Indicated? No 11/08/21 11/08/21 11/08/21 15:00 15:00 15:00 WBC RBC Hgb Hct MCV MCH MCHC RDW Plt Count MPV Neut % (Auto) Lymph % (Auto) [place] % (Auto) Eos % (Auto) Baso % (Auto) Lymph # (Auto) [place] # (Auto) Eos # (Auto) Baso # (Auto) Absolute Neutrophils POC PT PT 16.3 H POC INR INR 1.3 H APTT 37.5 H Sodium 138 Potassium 4.2 Chloride 101 Carbon Dioxide 28 Anion Gap 9.0 BUN 18 Creatinine 1.0 GFR Calculation 69 Glucose 122 H Uric Acid Calcium 9.4 Phosphorus Magnesium Total Bilirubin 0.8 Direct Bilirubin GGT AST 28 ALT 20 Alkaline Phosphatase 106 Lactate Dehydrogenase Troponin T 0.02 Total Protein 6.6 Albumin 3.6 Globulin 3.0 Albumin/Globulin Ratio 1.2 Triglycerides Urine Color Urine Appearance Urine pH Ur Specific [place] Urine Protein Urine Glucose (UA) Urine Ketones Urine Occult Blood Urine Nitrate Urine Bilirubin Urine Urobilinogen Ur Leukocyte Esterase Ur Culture Indicated? 11/08/21 15:00 WBC 6.2 RBC 4.28 L Hgb 11.6 L Hct 37.8 L MCV 88.3 MCH 27.1 MCHC 30.7 L RDW 15.1 H Plt Count 276 MPV 9.9 Neut % (Auto) 62.1 Lymph % (Auto) 23.8 [place] % (Auto) 9.3 Eos % (Auto) 4.2 Baso % (Auto) 0.6 Lymph # (Auto) 1.48 L [place] # (Auto) 0.58 Eos # (Auto) 0.26 Baso # (Auto) 0.04 Absolute Neutrophils 3.85 POC PT PT POC INR INR APTT Sodium Potassium Chloride Carbon Dioxide Anion Gap BUN Creatinine GFR Calculation Glucose Uric Acid Calcium Phosphorus Magnesium Total Bilirubin Direct Bilirubin GGT AST ALT Alkaline Phosphatase Lactate Dehydrogenase Troponin T Total Protein Albumin Globulin Albumin/Globulin Ratio Triglycerides Urine Color Urine Appearance Urine pH Ur Specific [place] Urine Protein Urine Glucose (UA) Urine Ketones Urine Occult Blood Urine Nitrate Urine Bilirubin Urine Urobilinogen Ur Leukocyte Esterase Ur Culture Indicated? Discharge Plan Patient/Caregiver Discharge Instructions Activity: increase activity as tolerated Activity Restrictions/Additional Instructions: Diet per Speech Therapy Prescriptions: Continued famotidine 20 mg tablet 20 mg PO QDAY Qty: 90 3RF Eliquis 5 mg tablet 5 mg PO BID Qty: 180 3RF atorvastatin 40 mg tablet 40 mg PO DAILY Qty: 90 3RF bumetanide 1 mg tablet 1 mg PO DAILY Qty: 90 3RF carvedilol 6.25 mg tablet 6.25 mg PO DAILY Qty: 90 3RF tramadol 50 mg tablet 50 mg PO BID PRN (Reason: pain) Qty: 30 2RF furosemide 20 mg tablet 20 mg PO BID Qty: 180 3RF multivitamin capsule 1 cap PO QAM 0RF glucosamine sulfate [Glucosamine] 500 mg tablet 500 mg PO DAILY 0RF aspirin [Aspir-81] 81 mg tablet,delayed release (DR/EC) 81 mg PO QDAY Qty: 1 0RF levetiracetam [Keppra] 500 mg tablet 2,000 mg PO QHS 0RF potassium chloride 20 mEq tablet extended release 40 meq PO DAILY Qty: 1 0RF cetirizine [Zyrtec] 10 mg Tablet 10 mg PO DAILY 0RF ferrous sulfate [Iron (ferrous sulfate)] 325 mg (65 mg iron) Tablet 325 mg PO DAILY 0RF Follow Up Plan Follow up with: Gee Ochoa DO [Primary Care Provider] - Patient Disposition: Xfer SNF Prognosis: Undetermined Rehab Potential: Fair I certify that the patient requires SNF services: Yes Overall status at discharge: patient is progressing back to baseline
[2021-11-09] MEDS ORDERED: LORazepam 2 MG/ML VIAL IV ONE (14:37)
[2021-11-09] MEDS ORDERED: LORazepam 2 MG/ML VIAL ONE (14:51)
--- NOTE | 2021-11-09 15:38 | Magnetic Resonance Report ---
INDICATION: left side deficits (arm) TECHNIQUE: Limited MRI scan of the brain. Sagittal T1 weighted images. Axial T2 FLAIR images. Axial diffusion-weighted images with ADC map COMPARISON: Previous brain CT scan dated 11/08/2021 FINDINGS: Large area of encephalomalacia in the left middle cerebral artery territory. There is cerebral atrophy. There is no restricted diffusion. No acute infarction. Right cerebral hemisphere is negative. Brainstem and cerebellum are negative. IMPRESSION: 1. No restricted diffusion. No acute infarction 2. Encephalomalacia consistent with remote left middle cerebral artery distribution infarction Interpreted and Authenticated by: Gee Lara 11/09/21
[2021-11-09] MEDS: traMADol 50 MG TABLET PO PRN (20:20)
[2021-11-09] MEDS: levETIRAcetam 500 MG TABLET PO SCH (20:20)
[2021-11-10] MEDS: 0.9 % SODIUM CHLORIDE 10 ML SYRINGE IV SCH ×3 (05:37→21:06)
--- NOTE | 2021-11-10 08:02 | Internal Med Progress Note ---
SUBJECTIVE Subjective Patient information: Note initiated : 11/10/21 at 7:58 am Service Date, if different from initiated Date: [] Patient: Connor Roy 81 y/o M admitted on 11/08/21 for Stroke. Chief Complaint: [] Interval history: History of present illness: Mr. Roy is a 81 year old M Brought into ED by because of left upper extremity weakness. History is obtained from chart and notes as patient has expressive aphasia. Per when he woke up he showed her that he was unable to make a fist. 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 According to nurse he did take his aspirin this morning. In the ED he had a CTA of the head and neck which showed no acute findings or thrombosis but did show the left hemispheric encephalomalacia from the previous stroke. Case discussed with stroke neurology [place] who recommended observation and MRI. 11/09 Seems to move his left hand more today. Awaiting MRI. Echo pending. Vital signs stable. 11/10 No changes overnight. Patient moving his left arm, suspect back to baseline. MRI showed no acute stroke. Review of Systems: Unable to obtain due to expressive aphasia Constitutional Vitals: Vital Signs Temp Pulse Resp BP Pulse Ox 97.6 F 65 18 142/90 98 11/10/21 04:01 11/09/21 08:01 11/10/21 06:01 11/10/21 06:01 11/10/21 06:01 Period Temp Pulse Resp BP Sys/Garica Pulse Ox Last 24 Hr 97.2 F-97.8 F 65 12-26 102-162/49-130 90-100 Intake and Output 11/09/21 11/10/21 11/10/21 21:59 05:59 13:59 Intake Total 360 Output Total 600 200 Balance -240 -200 Weight 82.1 kg Intake & Output: Intake & Output 11/09/21 11/10/21 11/10/21 21:59 05:59 13:59 Intake Total 360 Output Total 600 200 Balance -240 -200 Weight 82.1 kg Intake: Oral 360 Output: Void Amount 600 200 Other: Meal Nourishment/Supplement Percent of Meal Consumed 100% Feeding Ability Total Assistance Urine Appearance Clear Clear Urine Color Bright Yellow Bright Yellow Exam: General: Alert, Awake, No acute Distress Eyes/N/T: EOMI, Head/Neck: neck supple, CV: irreg irreg, No murmurs, Pulm: Lear b/l, no wheezing/rhonchi/rales Abd: soft, nontender, +BS x4 Ext: no clubbing/cyanosis, b/l LE 2-3+ edema Neuro: Right-sided hemiplegia chronic, able to raise left arm and makes partial fist on the left, follows commands, expressive aphasia Skin: warm/dry OBJ DATA Labs CBC & Chem 7: 11/08/21 15:00 11/09/21 05:27 Labs: Abnormal Lab Results 11/09/21 11/08/21 11/08/21 05:27 23:01 15:03 RBC Hgb Hct MCHC RDW Lymph # (Auto) POC PT 23.4 H PT POC INR 2.0 H INR APTT Glucose Total Protein 5.6 L Albumin 2.9 L Urine Ketones Trace A 11/08/21 11/08/21 11/08/21 15:00 15:00 15:00 RBC 4.28 L Hgb 11.6 L Hct 37.8 L MCHC 30.7 L RDW 15.1 H Lymph # (Auto) 1.48 L POC PT PT 16.3 H POC INR INR 1.3 H APTT 37.5 H Glucose 122 H Total Protein Albumin Urine Ketones Meds: Medications Acetaminophen (Acetaminophen 325 Mg Tablet) 650 mg PO Q6HP PRN; Protocol PRN Reason: Per Pain Protocol/Fever > 101 Albuterol/Ipratropium (Ipratropium/Albuterol 3 Ml Ampul.Neb) 3 ml NEB Q4HP PRN PRN Reason: Shortness Of Breath Apixaban (Apixaban 5 Mg Tablet) 5 mg PO BID [facility] Last Admin: 11/09/21 20:20 Dose: 5 mg Documented by: Aspirin (Aspirin 81 Mg Tab.Chew) 81 mg PO QDAY [facility] Last Admin: 11/09/21 07:57 Dose: 81 mg Documented by: Atorvastatin Calcium (Atorvastatin 40 Mg Tablet) 40 mg PO DAILY [facility] Last Admin: 11/09/21 07:57 Dose: 40 mg Documented by: Carvedilol (Carvedilol 6.25 Mg Tablet) 3.125 mg PO DAILY [facility] Last Admin: 11/09/21 08:22 Dose: Not Given Documented by: Docusate Sodium (Docusate Sodium 100 Mg Capsule) 100 mg PO BID [facility] Last Admin: 11/09/21 20:21 Dose: 100 mg Documented by: Famotidine (Famotidine 20 Mg Tablet) 20 mg PO QDAY [facility] Last Admin: 11/09/21 07:57 Dose: 20 mg Documented by: Potassium Chloride 40 meq/ (Dextrose) 520 mls @ 130 mls/hr IV UD PRN PRN Reason: Potassium < 3 Magnesium Sulfate (Magnesium Sulfate) 2 gm in 50 mls @ 50 mls/hr IV UD PRN PRN Reason: Magnesium </= 1.6 Levetiracetam (Levetiracetam 500 Mg Tablet) 2,000 mg PO QHS [facility] Last Admin: 11/09/21 20:20 Dose: 2,000 mg Documented by: Metoprolol Tartrate (Metoprolol Tartrate 5 Mg/5 Ml Vial) 5 mg IV Q2HP PRN PRN Reason: Tachyarrhythmias HR>110 Ondansetron HCl (Ondansetron 4 Mg/2 Ml Vial) 4 mg IV Q4HP PRN PRN Reason: Nausea And Vomiting Polyethylene Glycol (Polyethylene Glycol 3350 17 Gm Packet) 17 gm PO DAILYP PRN PRN Reason: Constipation Potassium Chloride (Potassium Chloride 20 Meq Tablet) 40 meq PO UD PRN PRN Reason: Potssium is 3-3.5 Potassium Chloride (Potassium Chloride 20 Meq Tablet) 40 meq PO UD PRN PRN Reason: Potassium < 3 Senna (Sennosides 1 Tablet) 2 tab PO DAILYP PRN PRN Reason: Constipation Sodium Chloride (0.9 % Sodium Chloride 10 Ml Syringe) 10 ml IV Q8 [facility] Last Admin: 11/10/21 05:37 Dose: 10 ml Documented by: Tramadol HCl (Tramadol 50 Mg Tablet) 50 mg PO BIDP PRN; Protocol PRN Reason: Per Pain Protocol Last Admin: 11/09/21 20:20 Dose: 50 mg Documented by: A/P Narrative A/P Narrative: A: *Left UE/hand weakness: improved -ABCD=5 -MRI not showing any acute infarct *h/o CVA w/residual Right hemiplegia and Expressive Aphasia: *Permanent Afib: on apixaban and ASA and BB *h/o Seizure d/o: on keppra *Generalized weakness/deconditioning/debility/poor functional status: wheelchair bound *Oropharyngeal Dysphagia, Moderate: *Anemia, chronic, BI: cont iron *GERD: *Peripheral edema: On diuretics P: -cont apixaban/asa/statin -restart diuretics -Comp wraps and elevate legs -restarted home BB -cont keppra -diet per ST -swallow study pending -CM for placement -ppx: Apixaban/home H2 DNR Time Spent With Patient Time: Total time spent is greater than 50% in coordination of care (as documented) at patient's floor/unit and/or counseling patient: Total time spent with greater than 50% in coordination of care (as documented) at patient's floor/unit and/or counseling patient:: 25 - 35 minutes QUALITY Stroke Symptom Onset Unknown: Yes
[2021-11-10] MEDS: ASPIRIN 81 MG TAB.CHEW PO SCH (08:54)
[2021-11-10] MEDS: ATORVASTATIN 40 MG TABLET PO SCH (08:55)
[2021-11-10] MEDS: FAMOTIDINE 20 MG TABLET PO SCH (08:55)
[2021-11-10] MEDS: CARVEDILOL 6.25 MG TABLET PO SCH (08:55)
[2021-11-10] MEDS: APIXABAN 5 MG TABLET PO SCH ×3 (08:55→21:25)
[2021-11-10] MEDS: BUMETANIDE 1 MG TABLET PO SCH (08:55)
[2021-11-10] MEDS: DOCUSATE SODIUM 100 MG CAPSULE PO SCH ×3 (08:55→21:25)
[2021-11-10] MEDS: ACETAMINOPHEN 325 MG TABLET PO PRN ×2 (13:00→21:11)
--- NOTE | 2021-11-10 13:15 | XRay Report ---
INDICATION: ?aspiration TECHNIQUE: Modified barium swallow was performed by the speech pathologist. 10 seconds fluoroscopy utilized COMPARISON: None. FINDINGS: The patient ingested thin liquid. There is no airway penetration or aspiration. 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 No zygomatic or diverticulum. IMPRESSION: 1. Cricopharyngeal dysmotility 2. No airway penetration or aspiration Interpreted and Authenticated by: Gee Lara 11/10/21
[2021-11-10] MEDS: levETIRAcetam 500 MG TABLET PO SCH ×2 (21:06→21:25)
[2021-11-11] MEDS: 0.9 % SODIUM CHLORIDE 10 ML SYRINGE IV SCH ×3 (04:32→20:58)
--- NOTE | 2021-11-11 07:01 | EKG ---
[facility] Test Date: 2021-11-08 Pat Name: Connor Roy Department: ED Room: Gender: Male [employer] Strategist: : 1940 Requested By: Cindy Clemens Order Number: [id number] Reading MD: Daron Hwang Measurements Intervals [place] Rate: 64 P: NV: QRS: 66 QRSD: 69 T: 48 QT: 437 QTc: 451 Interpretive Statements Atrial fibrillation Electronically Signed On 11-11-2021 7:01:35 PDT by Daron Hwang /store/M0/[id number]/[id number].pdf
[2021-11-11] MEDS: DOCUSATE SODIUM 100 MG CAPSULE PO SCH ×2 (08:10→20:59)
[2021-11-11] MEDS: ATORVASTATIN 40 MG TABLET PO SCH (08:10)
[2021-11-11] MEDS: APIXABAN 5 MG TABLET PO SCH ×2 (08:10→20:59)
[2021-11-11] MEDS: BUMETANIDE 1 MG TABLET PO SCH (08:10)
[2021-11-11] MEDS: ASPIRIN 81 MG TAB.CHEW PO SCH (08:11)
[2021-11-11] MEDS: CARVEDILOL 6.25 MG TABLET PO SCH (08:11)
[2021-11-11] MEDS: FAMOTIDINE 20 MG TABLET PO SCH (08:12)
--- NOTE | 2021-11-11 11:07 | Internal Med Progress Note ---
SUBJECTIVE Subjective Patient information: Note initiated : 11/11/21 at 11:05 am Service Date, if different from initiated Date: [] Patient: Connor Roy 81 y/o M admitted on 11/08/21 for Stroke. Chief Complaint: [] Interval history: History of present illness: Mr. Roy is a 81 year old M Brought into ED by because of left upper extremity weakness. History is obtained from chart and notes as patient has expressive aphasia. Per when he woke up he showed her that he was unable to make a fist. 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 According to nurse he did take his aspirin this morning. In the ED he had a CTA of the head and neck which showed no acute findings or thrombosis but did show the left hemispheric encephalomalacia from the previous stroke. Case discussed with stroke neurology [place] who recommended observation and MRI. 11/09 Seems to move his left hand more today. Awaiting MRI. Echo pending. Vital signs stable. 11/10 No changes overnight. Patient moving his left arm, suspect back to baseline. MRI showed no acute stroke. 11/11 Patient sitting up in bed. No new complaints. Awaiting placement. Review of Systems: Unable to obtain due to expressive aphasia Constitutional Vitals: Vital Signs Temp Pulse Resp BP Pulse Ox 99.3 F H 83 17 126/71 95 11/11/21 07:37 11/11/21 07:37 11/11/21 07:37 11/11/21 07:37 11/11/21 07:37 Period Temp Pulse Resp BP Sys/Garcia Pulse Ox Last 24 Hr 97.6 F-99.6 F 67-85 16-18 118-143/67-77 95-98 Intake and Output 11/10/21 11/11/21 11/11/21 21:59 05:59 13:59 Intake Total 120 600 Output Total 600 375 450 Balance -600 -255 150 Weight 81.556 kg Intake & Output: Intake & Output 11/10/21 11/11/21 11/11/21 21:59 05:59 13:59 Intake Total 120 600 Output Total 600 375 450 Balance -600 -255 150 Weight 81.556 kg Intake: Oral 120 600 Output: Void Amount 600 375 450 # of times incontinent of urine 0 0 Other: Meal Breakfast Percent of Meal Consumed 50% Feeding Ability Total Assistance Urine Appearance Clear Clear Clear Urine Color Dark Yellow Dark Yellow Dark Yellow Urine Odor Normal # Voids 0 0 # Bowel Movements 0 0 # of times incontinent of 0 0 Bowels Exam: General: Alert, Awake, No acute Distress Eyes/N/T: EOMI, Head/Neck: neck supple, CV: irreg irreg, No murmurs, Pulm: Lear b/l, no wheezing/rhonchi/rales Abd: soft, nontender, +BS x4 Ext: no clubbing/cyanosis, b/l LE 2-3+ edema Neuro: Right-sided hemiplegia chronic, able to raise left arm and makes partial fist on the left, follows commands, expressive aphasia Skin: warm/dry OBJ DATA Labs CBC & Chem 7: 11/08/21 15:00 11/09/21 05:27 Labs: Abnormal Lab Results 11/09/21 11/08/21 11/08/21 05:27 23:01 15:03 RBC Hgb Hct MCHC RDW Lymph # (Auto) POC PT 23.4 H PT POC INR 2.0 H INR APTT Glucose Total Protein 5.6 L Albumin 2.9 L Urine Ketones Trace A 11/08/21 11/08/21 11/08/21 15:00 15:00 15:00 RBC 4.28 L Hgb 11.6 L Hct 37.8 L MCHC 30.7 L RDW 15.1 H Lymph # (Auto) 1.48 L POC PT PT 16.3 H POC INR INR 1.3 H APTT 37.5 H Glucose 122 H Total Protein Albumin Urine Ketones Meds: Medications Acetaminophen (Acetaminophen 325 Mg Tablet) 650 mg PO Q6HP PRN; Protocol PRN Reason: Per Pain Protocol/Fever > 101 Last Admin: 11/10/21 13:00 Dose: 650 mg Documented by: Albuterol/Ipratropium (Ipratropium/Albuterol 3 Ml Ampul.Neb) 3 ml NEB Q4HP PRN PRN Reason: Shortness Of Breath Apixaban (Apixaban 5 Mg Tablet) 5 mg PO BID [facility] Last Admin: 11/11/21 08:10 Dose: 5 mg Documented by: Aspirin (Aspirin 81 Mg Tab.Chew) 81 mg PO QDAY [facility] Last Admin: 11/11/21 08:11 Dose: 81 mg Documented by: Atorvastatin Calcium (Atorvastatin 40 Mg Tablet) 40 mg PO DAILY [facility] Last Admin: 11/11/21 08:10 Dose: 40 mg Documented by: Bumetanide (Bumetanide 1 Mg Tablet) 1 mg PO DAILY [facility] Last Admin: 11/11/21 08:10 Dose: 1 mg Documented by: Carvedilol (Carvedilol 6.25 Mg Tablet) 6.25 mg PO DAILY [facility] Last Admin: 11/11/21 08:11 Dose: 6.25 mg Documented by: Docusate Sodium (Docusate Sodium 100 Mg Capsule) 100 mg PO BID [facility] Last Admin: 11/11/21 08:10 Dose: 100 mg Documented by: Famotidine (Famotidine 20 Mg Tablet) 20 mg PO QDAY [facility] Last Admin: 11/11/21 08:12 Dose: 20 mg Documented by: Potassium Chloride 40 meq/ (Dextrose) 520 mls @ 130 mls/hr IV UD PRN PRN Reason: Potassium < 3 Magnesium Sulfate (Magnesium Sulfate) 2 gm in 50 mls @ 50 mls/hr IV UD PRN PRN Reason: Magnesium </= 1.6 Levetiracetam (Levetiracetam 500 Mg Tablet) 2,000 mg PO QHS [facility] Last Admin: 11/10/21 21:25 Dose: Not Given Documented by: Metoprolol Tartrate (Metoprolol Tartrate 5 Mg/5 Ml Vial) 5 mg IV Q2HP PRN PRN Reason: Tachyarrhythmias HR>110 Ondansetron HCl (Ondansetron 4 Mg/2 Ml Vial) 4 mg IV Q4HP PRN PRN Reason: Nausea And Vomiting Polyethylene Glycol (Polyethylene Glycol 3350 17 Gm Packet) 17 gm PO DAILYP PRN PRN Reason: Constipation Potassium Chloride (Potassium Chloride 20 Meq Tablet) 40 meq PO UD PRN PRN Reason: Potssium is 3-3.5 Potassium Chloride (Potassium Chloride 20 Meq Tablet) 40 meq PO UD PRN PRN Reason: Potassium < 3 Senna (Sennosides 1 Tablet) 2 tab PO DAILYP PRN PRN Reason: Constipation Sodium Chloride (0.9 % Sodium Chloride 10 Ml Syringe) 10 ml IV Q8 [facility] Last Admin: 06/03/22 04:32 Dose: 10 ml Documented by: Tramadol HCl (Tramadol 50 Mg Tablet) 50 mg PO BIDP PRN; Protocol PRN Reason: Per Pain Protocol Last Admin: 11/09/21 20:20 Dose: 50 mg Documented by: A/P Narrative A/P Narrative: A: *Left UE/hand weakness: improved -ABCD=5 -MRI not showing any acute infarct *h/o CVA w/residual Right hemiplegia and Expressive Aphasia: *Permanent Afib: on apixaban and ASA and BB *h/o Seizure d/o: on keppra *Generalized weakness/deconditioning/debility/poor functional status: wheelchair bound *Oropharyngeal Dysphagia, Moderate: *Anemia, chronic, BI: cont iron *GERD: *Peripheral edema: On diuretics P: -cont apixaban/asa/statin -cont home diuretics -Comp wraps and elevate legs -restarted home BB -cont keppra -diet per ST, regular -CM for placement -ppx: Apixaban/home H2 DNR Time Spent With Patient Time: Total time spent is greater than 50% in coordination of care (as documented) at patient's floor/unit and/or counseling patient: QUALITY Stroke Symptom Onset Unknown: Yes
[2021-11-11] MEDS: levETIRAcetam 500 MG TABLET PO SCH (20:59)
[2021-11-12] MEDS: 0.9 % SODIUM CHLORIDE 10 ML SYRINGE IV SCH ×3 (05:40→20:44)
--- NOTE | 2021-11-12 07:31 | Internal Med Progress Note ---
SUBJECTIVE Subjective Patient information: Note initiated : 11/12/21 at 7:30 am Service Date, if different from initiated Date: [] Patient: Connor Roy 81 y/o M admitted on 11/08/21 for Stroke. Chief Complaint: [] Interval history: History of present illness: Mr. Roy is a 81 year old M Brought into ED by because of left upper extremity weakness. History is obtained from chart and notes as patient has expressive aphasia. Per when he woke up he showed her that he was unable to make a fist. 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 According to nurse he did take his aspirin this morning. In the ED he had a CTA of the head and neck which showed no acute findings or thrombosis but did show the left hemispheric encephalomalacia from the previous stroke. Case discussed with stroke neurology [place] who recommended observation and MRI. 11/09 Seems to move his left hand more today. Awaiting MRI. Echo pending. Vital signs stable. 11/10 No changes overnight. Patient moving his left arm, suspect back to baseline. MRI showed no acute stroke. 11/11 Patient sitting up in bed. No new complaints. Awaiting placement. 11/12 Patient talkative but given expressive aphasia, is not understandable. Occasionally clear meaningful word will be said. Review of Systems: Unable to obtain due to expressive aphasia Constitutional Vitals: Vital Signs Temp Pulse Resp BP Pulse Ox 98.8 F 89 16 125/80 100 11/12/21 02:15 11/12/21 02:15 11/12/21 02:15 11/12/21 02:15 11/12/21 02:15 Period Temp Pulse Resp BP Sys/Garcia Pulse Ox Last 24 Hr 98.4 F-99.5 F 68-89 16-17 119-147/65-80 95-100 Intake and Output 11/11/21 11/12/21 11/12/21 21:59 05:59 13:59 Intake Total 360 120 Output Total 150 250 Balance 210 -130 Weight 78.744 kg Intake & Output: Intake & Output 11/11/21 11/12/21 11/12/21 21:59 05:59 13:59 Intake Total 360 120 Output Total 150 250 Balance 210 -130 Weight 78.744 kg Intake: Oral 360 120 Output: Void Amount 150 250 Other: Meal Dinner Percent of Meal Consumed 50% Feeding Ability Total Assistance Exam: General: Alert, Awake, No acute Distress Eyes/N/T: EOMI, Head/Neck: neck supple, CV: irreg irreg, No murmurs, Pulm: Lear b/l, no wheezing/rhonchi/rales Abd: soft, nontender, +BS x4 Ext: no clubbing/cyanosis, b/l LE 2-3+ edema Neuro: Right-sided hemiplegia chronic, able to raise left arm and makes partial fist on the left, follows commands, expressive aphasia Skin: warm/dry OBJ DATA Labs CBC & Chem 7: 11/08/21 15:00 11/09/21 05:27 Meds: Medications Acetaminophen (Acetaminophen 325 Mg Tablet) 650 mg PO Q6HP PRN; Protocol PRN Reason: Per Pain Protocol/Fever > 101 Last Admin: 11/10/21 13:00 Dose: 650 mg Documented by: Albuterol/Ipratropium (Ipratropium/Albuterol 3 Ml Ampul.Neb) 3 ml NEB Q4HP PRN PRN Reason: Shortness Of Breath Apixaban (Apixaban 5 Mg Tablet) 5 mg PO BID [facility] Last Admin: 11/11/21 20:59 Dose: 5 mg Documented by: Aspirin (Aspirin 81 Mg Tab.Chew) 81 mg PO QDAY [facility] Last Admin: 11/11/21 08:11 Dose: 81 mg Documented by: Atorvastatin Calcium (Atorvastatin 40 Mg Tablet) 40 mg PO DAILY [facility] Last Admin: 11/11/21 08:10 Dose: 40 mg Documented by: Bumetanide (Bumetanide 1 Mg Tablet) 1 mg PO DAILY [facility] Last Admin: 11/11/21 08:10 Dose: 1 mg Documented by: Carvedilol (Carvedilol 6.25 Mg Tablet) 6.25 mg PO DAILY [facility] Last Admin: 11/11/21 08:11 Dose: 6.25 mg Documented by: Docusate Sodium (Docusate Sodium 100 Mg Capsule) 100 mg PO BID [facility] Last Admin: 11/11/21 20:59 Dose: 100 mg Documented by: Famotidine (Famotidine 20 Mg Tablet) 20 mg PO QDAY [facility] Last Admin: 11/11/21 08:12 Dose: 20 mg Documented by: Potassium Chloride 40 meq/ (Dextrose) 520 mls @ 130 mls/hr IV UD PRN PRN Reason: Potassium < 3 Magnesium Sulfate (Magnesium Sulfate) 2 gm in 50 mls @ 50 mls/hr IV UD PRN PRN Reason: Magnesium </= 1.6 Levetiracetam (Levetiracetam 500 Mg Tablet) 2,000 mg PO QHS [facility] Last Admin: 11/11/21 20:59 Dose: 2,000 mg Documented by: Metoprolol Tartrate (Metoprolol Tartrate 5 Mg/5 Ml Vial) 5 mg IV Q2HP PRN PRN Reason: Tachyarrhythmias HR>110 Ondansetron HCl (Ondansetron 4 Mg/2 Ml Vial) 4 mg IV Q4HP PRN PRN Reason: Nausea And Vomiting Polyethylene Glycol (Polyethylene Glycol 3350 17 Gm Packet) 17 gm PO DAILYP PRN PRN Reason: Constipation Potassium Chloride (Potassium Chloride 20 Meq Tablet) 40 meq PO UD PRN PRN Reason: Potssium is 3-3.5 Potassium Chloride (Potassium Chloride 20 Meq Tablet) 40 meq PO UD PRN PRN Reason: Potassium < 3 Senna (Sennosides 1 Tablet) 2 tab PO DAILYP PRN PRN Reason: Constipation Sodium Chloride (0.9 % Sodium Chloride 10 Ml Syringe) 10 ml IV Q8 [facility] Last Admin: 11/12/21 05:40 Dose: Not Given Documented by: Tramadol HCl (Tramadol 50 Mg Tablet) 50 mg PO BIDP PRN; Protocol PRN Reason: Per Pain Protocol Last Admin: 11/09/21 20:20 Dose: 50 mg Documented by: A/P Narrative A/P Narrative: A: *Left UE/hand weakness: improved -ABCD=5 -MRI not showing any acute infarct *h/o CVA w/residual Right hemiplegia and Expressive Aphasia: *Permanent Afib: on apixaban and ASA and BB *h/o Seizure d/o: on keppra *Generalized weakness/deconditioning/debility/poor functional status: wheelchair bound *Oropharyngeal Dysphagia, Moderate: *Anemia, chronic, BI: cont iron *GERD: *Peripheral edema: On diuretics P: -cont apixaban/asa/statin -cont home diuretics -Comp wraps and elevate legs -restarted home BB -cont keppra -diet per ST, regular -CM for placement, awaiting -ppx: Apixaban/home H2 DNR Time Spent With Patient Time: Total time spent is greater than 50% in coordination of care (as documented) at patient's floor/unit and/or counseling patient: QUALITY Stroke Symptom Onset Unknown: Yes
[2021-11-12] MEDS: ATORVASTATIN 40 MG TABLET PO SCH (08:55)
[2021-11-12] MEDS: ASPIRIN 81 MG TAB.CHEW PO SCH (08:55)
[2021-11-12] MEDS: FAMOTIDINE 20 MG TABLET PO SCH (08:55)
[2021-11-12] MEDS: CARVEDILOL 6.25 MG TABLET PO SCH (08:56)
[2021-11-12] MEDS: APIXABAN 5 MG TABLET PO SCH ×2 (08:56→20:43)
[2021-11-12] MEDS: DOCUSATE SODIUM 100 MG CAPSULE PO SCH ×2 (08:56→20:43)
[2021-11-12] MEDS: BUMETANIDE 1 MG TABLET PO SCH (08:56)
[2021-11-12] MEDS: levETIRAcetam 500 MG TABLET PO SCH (20:43)
[2021-11-12] MEDS: ACETAMINOPHEN 325 MG TABLET PO PRN (20:45)
[2021-11-13] MEDS: 0.9 % SODIUM CHLORIDE 10 ML SYRINGE IV SCH ×3 (05:20→20:45)
--- NOTE | 2021-11-13 07:50 | Internal Med Progress Note ---
SUBJECTIVE Subjective Patient information: Note initiated : 11/13/21 at 7:50 am Service Date, if different from initiated Date: [] Patient: Connor Roy 81 y/o M admitted on 11/08/21 for Stroke. Chief Complaint: [] Interval history: History of present illness: Mr. Roy is a 81 year old M Brought into ED by because of left upper extremity weakness. History is obtained from chart and notes as patient has expressive aphasia. Per when he woke up he showed her that he was unable to make a fist. 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 According to nurse he did take his aspirin this morning. In the ED he had a CTA of the head and neck which showed no acute findings or thrombosis but did show the left hemispheric encephalomalacia from the previous stroke. Case discussed with stroke neurology [place] who recommended observation and MRI. 11/09 Seems to move his left hand more today. Awaiting MRI. Echo pending. Vital signs stable. 6/2 No changes overnight. Patient moving his left arm, suspect back to baseline. MRI showed no acute stroke. 6/3 Patient sitting up in bed. No new complaints. Awaiting placement. 6/4 Patient talkative but given expressive aphasia, is not understandable. Occasionally clear meaningful word will be said. 6/5 No overnight event or new complaints. Awaiting placement. Review of Systems: Unable to obtain due to expressive aphasia Constitutional Vitals: Vital Signs Temp Pulse Resp BP Pulse Ox 98.0 F 79 16 99/59 97 11/13/21 03:11 11/13/21 03:11 11/13/21 03:11 11/13/21 03:11 11/13/21 03:11 Period Temp Pulse Resp BP Sys/Garcia Pulse Ox Last 24 Hr 97.8 F-98.7 F 67-79 14-16 99-111/54-60 97-99 Intake and Output 11/12/21 11/13/21 11/13/21 21:59 05:59 13:59 Intake Total 530 480 Output Total 200 575 Balance 330 -95 Weight 76.34 kg Intake & Output: Intake & Output 11/12/21 11/13/21 11/13/21 21:59 05:59 13:59 Intake Total 530 480 Output Total 200 575 Balance 330 -95 Weight 76.34 kg Intake: Oral 530 480 Output: Void Amount 200 575 Other: Meal Dinner Percent of Meal Consumed 10 Feeding Ability Total Assistance Urine Appearance Clear Clear Urine Color Pale Straw # of times incontinent of 1 Bowels Exam: General: Alert, Awake, No acute Distress Eyes/N/T: EOMI, Head/Neck: neck supple, CV: irreg irreg, No murmurs, Pulm: Lear b/l, no wheezing/rhonchi/rales Abd: soft, nontender, +BS x4 Ext: no clubbing/cyanosis, b/l LE 2-3+ edema Neuro: Right-sided hemiplegia chronic, follows commands, expressive aphasia Skin: warm/dry OBJ DATA Labs CBC & Chem 7: 11/08/21 15:00 11/09/21 05:27 Meds: Medications Acetaminophen (Acetaminophen 325 Mg Tablet) 650 mg PO Q6HP PRN; Protocol PRN Reason: Per Pain Protocol/Fever > 101 Last Admin: 11/12/21 20:45 Dose: 650 mg Documented by: Albuterol/Ipratropium (Ipratropium/Albuterol 3 Ml Ampul.Neb) 3 ml NEB Q4HP PRN PRN Reason: Shortness Of Breath Apixaban (Apixaban 5 Mg Tablet) 5 mg PO BID [facility] Last Admin: 11/12/21 20:43 Dose: 5 mg Documented by: Aspirin (Aspirin 81 Mg Tab.Chew) 81 mg PO QDAY [facility] Last Admin: 11/12/21 08:55 Dose: 81 mg Documented by: Atorvastatin Calcium (Atorvastatin 40 Mg Tablet) 40 mg PO DAILY [facility] Last Admin: 11/12/21 08:55 Dose: 40 mg Documented by: Bumetanide (Bumetanide 1 Mg Tablet) 1 mg PO DAILY [facility] Last Admin: 11/12/21 08:56 Dose: 1 mg Documented by: Carvedilol (Carvedilol 6.25 Mg Tablet) 6.25 mg PO DAILY [facility] Last Admin: 11/12/21 08:56 Dose: 6.25 mg Documented by: Docusate Sodium (Docusate Sodium 100 Mg Capsule) 100 mg PO BID [facility] Last Admin: 11/12/21 20:43 Dose: 100 mg Documented by: Famotidine (Famotidine 20 Mg Tablet) 20 mg PO QDAY [facility] Last Admin: 11/12/21 08:55 Dose: 20 mg Documented by: Potassium Chloride 40 meq/ (Dextrose) 520 mls @ 130 mls/hr IV UD PRN PRN Reason: Potassium < 3 Magnesium Sulfate (Magnesium Sulfate) 2 gm in 50 mls @ 50 mls/hr IV UD PRN PRN Reason: Magnesium </= 1.6 Levetiracetam (Levetiracetam 500 Mg Tablet) 2,000 mg PO QHS [facility] Last Admin: 11/12/21 20:43 Dose: 2,000 mg Documented by: Metoprolol Tartrate (Metoprolol Tartrate 5 Mg/5 Ml Vial) 5 mg IV Q2HP PRN PRN Reason: Tachyarrhythmias HR>110 Ondansetron HCl (Ondansetron 4 Mg/2 Ml Vial) 4 mg IV Q4HP PRN PRN Reason: Nausea And Vomiting Polyethylene Glycol (Polyethylene Glycol 3350 17 Gm Packet) 17 gm PO DAILYP PRN PRN Reason: Constipation Potassium Chloride (Potassium Chloride 20 Meq Tablet) 40 meq PO UD PRN PRN Reason: Potssium is 3-3.5 Potassium Chloride (Potassium Chloride 20 Meq Tablet) 40 meq PO UD PRN PRN Reason: Potassium < 3 Senna (Sennosides 1 Tablet) 2 tab PO DAILYP PRN PRN Reason: Constipation Sodium Chloride (0.9 % Sodium Chloride 10 Ml Syringe) 10 ml IV Q8 [facility] Last Admin: 11/13/21 05:20 Dose: Not Given Documented by: Tramadol HCl (Tramadol 50 Mg Tablet) 50 mg PO BIDP PRN; Protocol PRN Reason: Per Pain Protocol Last Admin: 11/09/21 20:20 Dose: 50 mg Documented by: A/P Narrative A/P Narrative: A: *Left UE/hand weakness: improved -ABCD=5 -MRI not showing any acute infarct *h/o CVA w/residual Right hemiplegia and Expressive Aphasia: *Permanent Afib: on apixaban and ASA and BB *h/o Seizure d/o: on keppra *Generalized weakness/deconditioning/debility/poor functional status: wheelchair bound *Oropharyngeal Dysphagia, Moderate: *Anemia, chronic, BI: cont iron *GERD: *Peripheral edema: On diuretics P: -cont apixaban/asa/statin -cont home diuretics -Comp wraps and elevate legs -restarted home BB -cont keppra -diet per ST, regular -CM for placement, awaiting -ppx: Apixaban/home H2 DNR Time Spent With Patient Time: Total time spent is greater than 50% in coordination of care (as documented) at patient's floor/unit and/or counseling patient: QUALITY Stroke Symptom Onset Unknown: Yes
[2021-11-13] MEDS: CARVEDILOL 6.25 MG TABLET PO SCH (09:08)
[2021-11-13] MEDS: ASPIRIN 81 MG TAB.CHEW PO SCH (09:08)
[2021-11-13] MEDS: ATORVASTATIN 40 MG TABLET PO SCH (09:09)
[2021-11-13] MEDS: DOCUSATE SODIUM 100 MG CAPSULE PO SCH ×2 (09:09→20:43)
[2021-11-13] MEDS: FAMOTIDINE 20 MG TABLET PO SCH (09:09)
[2021-11-13] MEDS: APIXABAN 5 MG TABLET PO SCH ×2 (09:10→20:44)
[2021-11-13] MEDS: BUMETANIDE 1 MG TABLET PO SCH (09:10)
[2021-11-13] MEDS: levETIRAcetam 500 MG TABLET PO SCH (20:44)
[2021-11-14] MEDS: ACETAMINOPHEN 325 MG TABLET PO PRN ×2 (01:10→08:56)
[2021-11-14] MEDS ORDERED: QUEtiapine 25 MG TABLET PO ONE (01:18)
[2021-11-14] MEDS ORDERED: QUEtiapine 25 MG TABLET ONE (01:33)
[2021-11-14] MEDS: 0.9 % SODIUM CHLORIDE 10 ML SYRINGE IV SCH ×3 (04:55→21:52)
[2021-11-14] MEDS: CARVEDILOL 6.25 MG TABLET PO SCH (08:18)
[2021-11-14] MEDS: APIXABAN 5 MG TABLET PO SCH ×2 (08:18→20:02)
[2021-11-14] MEDS: BUMETANIDE 1 MG TABLET PO SCH (08:18)
[2021-11-14] MEDS: ASPIRIN 81 MG TAB.CHEW PO SCH (08:18)
[2021-11-14] MEDS: ATORVASTATIN 40 MG TABLET PO SCH (08:18)
[2021-11-14] MEDS: DOCUSATE SODIUM 100 MG CAPSULE PO SCH ×3 (08:19→19:53)
[2021-11-14] MEDS: FAMOTIDINE 20 MG TABLET PO SCH (08:22)
--- NOTE | 2021-11-14 13:35 | Internal Med Progress Note ---
SUBJECTIVE Subjective Patient information: Note initiated : 11/14/21 at 1:34 pm Service Date, if different from initiated Date: [as above] Patient: Connor Roy 81 y/o M admitted on 11/08/21 for Stroke. Chief Complaint: [CVA] Principal diagnosis: Left upper extremity weakness, concerning for TIA Interval history: The patient was resting comfortably in bed. He has dense right hemiplegia and left apraxia. Discussed the case with RN as there is concerns for ongoing urinary retention. Constitutional Vitals: Vital Signs Temp Pulse Resp BP Pulse Ox 97.5 F 72 20 136/66 98 11/14/21 12:00 11/14/21 12:00 11/14/21 12:00 11/14/21 12:00 11/14/21 12:00 Period Temp Pulse Resp BP Sys/Garcia Pulse Ox Last 24 Hr 97.3 F-98.6 F 70-86 14-20 98-136/54-82 93-99 Intake and Output 11/13/21 11/14/21 11/14/21 21:59 05:59 13:59 Intake Total 700 420 100 Output Total 0 750 Balance 700 420 -650 Weight 77.791 kg 77.791 kg Patient Weight 11/15/21 05:59 Weight 77.791 kg Intake & Output: Intake & Output 11/13/21 11/14/21 11/14/21 21:59 05:59 13:59 Intake Total 700 420 100 Output Total 0 750 Balance 700 420 -650 Weight 77.791 kg 77.791 kg Intake: Oral 700 420 100 Output: Urine Catheter Amount 750 Straight Cath #2 750 Void Amount 0 Other: Meal Dinner Breakfast Percent of Meal Consumed 50% 25% Feeding Ability Independent Total Assistance Urine Appearance Straight Cath #2 Clear Urine Color Straight Cath #2 Straw Stool Size Small Small Stool Color Brown Brown Stool Consistency Soft Soft # Bowel Movements 1 # of times incontinent of 1 Bowels Head Head exam: Present atraumatic and normal inspection Eye Eye exam: Present normal appearance ENT ENT exam: Present mucous membranes moist, normal exam and normal external ear exam Neck Neck exam: Present normal inspection Respiratory Respiratory exam: Present normal respiratory exam Cardiovascular Cardiovascular exam: Present normal rate and rhythm GI/Abdominal GI/Abdominal exam: Present normal bowel sounds Back Exam Back exam: Present normal inspection Neurological Exam Neurological exam: Present altered; Absent CN II-XII intact or normal gait Additional comments: Right facial droop, dense right hemiplegia, left apraxia Skin Skin exam: Present intact and warm OBJ DATA Labs CBC & Chem 7: 11/08/21 15:00 11/09/21 05:27 Meds: Medications Acetaminophen (Acetaminophen 325 Mg Tablet) 650 mg PO Q6HP PRN; Protocol PRN Reason: Per Pain Protocol/Fever > 101 Last Admin: 11/14/21 08:56 Dose: 650 mg Documented by: Albuterol/Ipratropium (Ipratropium/Albuterol 3 Ml Ampul.Neb) 3 ml NEB Q4HP PRN PRN Reason: Shortness Of Breath Apixaban (Apixaban 5 Mg Tablet) 5 mg PO BID [facility] Last Admin: 11/14/21 08:18 Dose: 5 mg Documented by: Aspirin (Aspirin 81 Mg Tab.Chew) 81 mg PO QDAY [facility] Last Admin: 11/14/21 08:18 Dose: 81 mg Documented by: Atorvastatin Calcium (Atorvastatin 40 Mg Tablet) 40 mg PO DAILY [facility] Last Admin: 11/14/21 08:18 Dose: 40 mg Documented by: Bumetanide (Bumetanide 1 Mg Tablet) 1 mg PO DAILY [facility] Last Admin: 11/14/21 08:18 Dose: 1 mg Documented by: Carvedilol (Carvedilol 6.25 Mg Tablet) 6.25 mg PO DAILY [facility] Last Admin: 11/14/21 08:18 Dose: 6.25 mg Documented by: Docusate Sodium (Docusate Sodium 100 Mg Capsule) 100 mg PO BID [facility] Last Admin: 11/14/21 08:23 Dose: 100 mg Documented by: Famotidine (Famotidine 20 Mg Tablet) 20 mg PO QDAY [facility] Last Admin: 11/14/21 08:22 Dose: 20 mg Documented by: Potassium Chloride 40 meq/ (Dextrose) 520 mls @ 130 mls/hr IV UD PRN PRN Reason: Potassium < 3 Magnesium Sulfate (Magnesium Sulfate) 2 gm in 50 mls @ 50 mls/hr IV UD PRN PRN Reason: Magnesium </= 1.6 Levetiracetam (Levetiracetam 500 Mg Tablet) 2,000 mg PO QHS [facility] Last Admin: 11/13/21 20:44 Dose: 2,000 mg Documented by: Metoprolol Tartrate (Metoprolol Tartrate 5 Mg/5 Ml Vial) 5 mg IV Q2HP PRN PRN Reason: Tachyarrhythmias HR>110 Ondansetron HCl (Ondansetron 4 Mg/2 Ml Vial) 4 mg IV Q4HP PRN PRN Reason: Nausea And Vomiting Polyethylene Glycol (Polyethylene Glycol 3350 17 Gm Packet) 17 gm PO DAILYP PRN PRN Reason: Constipation Last Admin: 11/14/21 04:55 Dose: 17 gm Documented by: Potassium Chloride (Potassium Chloride 20 Meq Tablet) 40 meq PO UD PRN PRN Reason: Potssium is 3-3.5 Potassium Chloride (Potassium Chloride 20 Meq Tablet) 40 meq PO UD PRN PRN Reason: Potassium < 3 Senna (Sennosides 1 Tablet) 2 tab PO DAILYP PRN PRN Reason: Constipation Last Admin: 11/13/21 09:08 Dose: 2 tab Documented by: Sodium Chloride (0.9 % Sodium Chloride 10 Ml Syringe) 10 ml IV Q8 [facility] Last Admin: 11/14/21 04:55 Dose: 10 ml Documented by: Tramadol HCl (Tramadol 50 Mg Tablet) 50 mg PO BIDP PRN; Protocol PRN Reason: Per Pain Protocol Last Admin: 11/09/21 20:20 Dose: 50 mg Documented by: A/P Narrative A/P Narrative: A: *Left UE/hand weakness: improved -ABCD=5 -MRI not showing any acute infarct *h/o CVA w/residual Right hemiplegia and Expressive Aphasia: *Permanent Afib: on apixaban and ASA and BB *h/o Seizure d/o: on keppra *Generalized weakness/deconditioning/debility/poor functional status: wheelchair bound *Oropharyngeal Dysphagia, Moderate: *Anemia, chronic, BI: cont iron *GERD: *Peripheral edema: On diuretics P: -/6: At this point, the patient would benefit from goals of care discussion with the . Social work and case management will continue to work on disposition. -cont apixaban/asa/statin -cont home diuretics -Comp wraps and elevate legs -restarted home BB -cont keppra -diet per ST, regular -CM for placement, awaiting -ppx: Apixaban/home H2 DNR Time Spent With Patient Time: Total time spent is greater than 50% in coordination of care (as documented) at patient's floor/unit and/or counseling patient: Total time spent with greater than 50% in coordination of care (as documented) at patient's floor/unit and/or counseling patient:: 25 - 35 minutes QUALITY Stroke Symptom Onset Unknown: Yes
[2021-11-14] MEDS: levETIRAcetam 500 MG TABLET PO SCH (20:01)
[2021-11-14] MEDS: traMADol 50 MG TABLET PO PRN (20:01)
[2021-11-15] MEDS: 0.9 % SODIUM CHLORIDE 10 ML SYRINGE IV SCH ×3 (05:38→21:09)
[2021-11-15] MEDS: APIXABAN 5 MG TABLET PO SCH ×2 (10:23→21:08)
[2021-11-15] MEDS: FAMOTIDINE 20 MG TABLET PO SCH (10:23)
[2021-11-15] MEDS: ASPIRIN 81 MG TAB.CHEW PO SCH (10:23)
[2021-11-15] MEDS: CARVEDILOL 6.25 MG TABLET PO SCH (10:23)
[2021-11-15] MEDS: ATORVASTATIN 40 MG TABLET PO SCH (10:23)
[2021-11-15] MEDS: BUMETANIDE 1 MG TABLET PO SCH (10:23)
[2021-11-15] MEDS: DOCUSATE SODIUM 100 MG CAPSULE PO SCH ×2 (10:24→21:03)
--- NOTE | 2021-11-15 11:06 | Internal Med Progress Note ---
SUBJECTIVE Subjective Patient information: Note initiated : 11/15/21 at 11:04 am Service Date, if different from initiated Date: Patient: Connor Roy 81 y/o M admitted on 11/08/21 for Stroke. Chief Complaint: [Left sided weakness] Principal diagnosis: Left upper extremity weakness, concerning for TIA Interval history: The patient was resting comfortably in bed. He remains medically status quo. We discussed discharge planning during multidisciplinary rounds this morning Constitutional Vitals: Vital Signs Temp Pulse Resp BP Pulse Ox 99.2 F H 75 20 102/57 97 11/15/21 08:00 11/15/21 08:00 11/15/21 08:00 11/15/21 08:00 11/15/21 08:00 Period Temp Pulse Resp BP Sys/Garcia Pulse Ox Last 24 Hr 97.5 F-99.2 F 70-80 16-20 100-136/52-68 97-99 Intake and Output 11/14/21 11/15/21 11/15/21 21:59 05:59 13:59 Intake Total 680 200 360 Output Total 325 200 Balance 355 0 360 Weight 77.791 kg Intake & Output: Intake & Output 11/14/21 11/15/21 11/15/21 21:59 05:59 13:59 Intake Total 680 200 360 Output Total 325 200 Balance 355 0 360 Weight 77.791 kg Intake: Nourishment/Supplement quantity 340 (ml) Oral 100 200 360 GI Tube Flush 240 Output: Void Amount 325 200 Other: Meal Dinner Breakfast Percent of Meal Consumed 75% 100% Feeding Ability Assist with Tray Set Up Assist with Tray Set Up Nourishment/Supplement name ensure Urine Appearance Clear Urine Color Straw Bright Yellow Urine Odor Normal Stool Size Large Small Moderate Stool Color Brown Brown Brown Stool Consistency Soft Soft Soft Liquid # Bowel Movements 1 1 # of times incontinent of 1 1 Bowels Head Head exam: Present atraumatic and normal inspection Eye Eye exam: Present normal appearance ENT ENT exam: Present mucous membranes moist, normal exam and normal external ear exam Neck Neck exam: Present normal inspection Respiratory Respiratory exam: Present normal respiratory exam Cardiovascular Cardiovascular exam: Present normal rate and rhythm GI/Abdominal GI/Abdominal exam: Present normal bowel sounds Back Exam Back exam: Present normal inspection Neurological Exam Neurological exam: Present alert Additional comments: Right dense hemiplegia and left apraxia. Right-sided facial droop. Skin Skin exam: Present intact and warm OBJ DATA Labs CBC & Chem 7: 11/08/21 15:00 11/09/21 05:27 Meds: Medications Acetaminophen (Acetaminophen 325 Mg Tablet) 650 mg PO Q6HP PRN; Protocol PRN Reason: Per Pain Protocol/Fever > 101 Last Admin: 11/14/21 08:56 Dose: 650 mg Documented by: Albuterol/Ipratropium (Ipratropium/Albuterol 3 Ml Ampul.Neb) 3 ml NEB Q4HP PRN PRN Reason: Shortness Of Breath Apixaban (Apixaban 5 Mg Tablet) 5 mg PO BID [facility] Last Admin: 11/15/21 10:23 Dose: 5 mg Documented by: Aspirin (Aspirin 81 Mg Tab.Chew) 81 mg PO QDAY [facility] Last Admin: 11/15/21 10:23 Dose: 81 mg Documented by: Atorvastatin Calcium (Atorvastatin 40 Mg Tablet) 40 mg PO DAILY [facility] Last Admin: 11/15/21 10:23 Dose: 40 mg Documented by: Bumetanide (Bumetanide 1 Mg Tablet) 1 mg PO DAILY [facility] Last Admin: 11/15/21 10:23 Dose: 1 mg Documented by: Carvedilol (Carvedilol 6.25 Mg Tablet) 6.25 mg PO DAILY [facility] Last Admin: 11/15/21 10:23 Dose: 6.25 mg Documented by: Docusate Sodium (Docusate Sodium 100 Mg Capsule) 100 mg PO BID [facility] Last Admin: 11/15/21 10:24 Dose: Not Given Documented by: Famotidine (Famotidine 20 Mg Tablet) 20 mg PO QDAY [facility] Last Admin: 11/15/21 10:23 Dose: 20 mg Documented by: Potassium Chloride 40 meq/ (Dextrose) 520 mls @ 130 mls/hr IV UD PRN PRN Reason: Potassium < 3 Magnesium Sulfate (Magnesium Sulfate) 2 gm in 50 mls @ 50 mls/hr IV UD PRN PRN Reason: Magnesium </= 1.6 Levetiracetam (Levetiracetam 500 Mg Tablet) 2,000 mg PO QHS [facility] Last Admin: 11/14/21 20:01 Dose: 2,000 mg Documented by: Metoprolol Tartrate (Metoprolol Tartrate 5 Mg/5 Ml Vial) 5 mg IV Q2HP PRN PRN Reason: Tachyarrhythmias HR>110 Ondansetron HCl (Ondansetron 4 Mg/2 Ml Vial) 4 mg IV Q4HP PRN PRN Reason: Nausea And Vomiting Polyethylene Glycol (Polyethylene Glycol 3350 17 Gm Packet) 17 gm PO DAILYP PRN PRN Reason: Constipation Last Admin: 11/14/21 04:55 Dose: 17 gm Documented by: Potassium Chloride (Potassium Chloride 20 Meq Tablet) 40 meq PO UD PRN PRN Reason: Potssium is 3-3.5 Potassium Chloride (Potassium Chloride 20 Meq Tablet) 40 meq PO UD PRN PRN Reason: Potassium < 3 Senna (Sennosides 1 Tablet) 2 tab PO DAILYP PRN PRN Reason: Constipation Last Admin: 11/13/21 09:08 Dose: 2 tab Documented by: Sodium Chloride (0.9 % Sodium Chloride 10 Ml Syringe) 10 ml IV Q8 [facility] Last Admin: 11/15/21 05:38 Dose: 10 ml Documented by: Tramadol HCl (Tramadol 50 Mg Tablet) 50 mg PO BIDP PRN; Protocol PRN Reason: Per Pain Protocol Last Admin: 11/14/21 20:01 Dose: 50 mg Documented by: A/P Narrative A/P Narrative: A: *Left UE/hand weakness: improved -ABCD=5 -MRI not showing any acute infarct *h/o CVA w/residual Right hemiplegia and Expressive Aphasia: *Permanent Afib: on apixaban and ASA and BB *h/o Seizure d/o: on keppra *Generalized weakness/deconditioning/debility/poor functional status: wheelchair bound *Oropharyngeal Dysphagia, Moderate: *Anemia, chronic, BI: cont iron *GERD: *Peripheral edema: On diuretics P: -11/15: Tentative plan is home with hospice tomorrow. -11/14: At this point, the patient would benefit from goals of care discussion with the . Social work and case management will continue to work on disposition. -cont apixaban/asa/statin -cont home diuretics -Comp wraps and elevate legs -restarted home BB -cont keppra -diet per ST, regular -CM for placement, awaiting -ppx: Apixaban/home H2 DNR Time Spent With Patient Time: Total time spent is greater than 50% in coordination of care (as documented) at patient's floor/unit and/or counseling patient: Total time spent with greater than 50% in coordination of care (as documented) at patient's floor/unit and/or counseling patient:: 25 - 35 minutes QUALITY Stroke Symptom Onset Unknown: Yes
[2021-11-15] MEDS: traMADol 50 MG TABLET PO PRN ×2 (13:18→21:08)
[2021-11-15] MEDS: levETIRAcetam 500 MG TABLET PO SCH (21:08)
[2021-11-16] MEDS: 0.9 % SODIUM CHLORIDE 10 ML SYRINGE IV SCH (04:33)
[2021-11-16] MEDS: ASPIRIN 81 MG TAB.CHEW PO SCH (09:51)
[2021-11-16] MEDS: APIXABAN 5 MG TABLET PO SCH (09:51)
[2021-11-16] MEDS: BUMETANIDE 1 MG TABLET PO SCH (09:51)
[2021-11-16] MEDS: CARVEDILOL 6.25 MG TABLET PO SCH (09:51)
[2021-11-16] MEDS: FAMOTIDINE 20 MG TABLET PO SCH (09:51)
[2021-11-16] MEDS: DOCUSATE SODIUM 100 MG CAPSULE PO SCH (09:52)
[2021-11-16] MEDS: ATORVASTATIN 40 MG TABLET PO SCH (09:52)
[2021-11-16] MEDS: ACETAMINOPHEN 325 MG TABLET PO PRN (10:43)
--- NOTE | 2021-11-16 11:22 | Discharge Summary ---
Discharge Provider Provider IMPORTANT FOLLOW-UP INFORMATION FOR PCP: Patient information: Note initiated : 11/16/21 at 11:22 am Service Date, if different from initiated Date: [as above] Patient: Connor Roy 81 y/o M admitted on 11/08/21 for Stroke. Chief Complaint: [L weakness] Date of admission: 11/08/21 20:27 Discharge date: 11/16/21 Primary care physician: Gee Ochoa DO Admitting clinician: Carl Back Consults: 11/08/21 14:44 Consult to Physician [CONS] Stat Comment: Consulting Provider: [facility],Provider Reason For Exam: Physician to Consult 11/08/21 18:07 Consult to Physician [CONS] Stat Comment: Consulting Provider: Carl Back Reason For Exam: Physician to Consult 11/11/21 13:41 Consult to Physician [CONS] Routine Comment: snf Consulting Provider: [facility] Reason For Exam: Physician to Consult Discharging clinician: Jolanta SELF Hospital Course Hospital course: Brought into ED by because of left upper extremity weakness. History is obtained from chart and notes as patient has expressive aphasia. Per when he woke up he showed her that he was unable to make a fist. 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 According to nurse he did take his aspirin this morning. In the ED he had a CTA of the head and neck which showed no acute findings or thrombosis but did show the left hemispheric encephalomalacia from the previous stroke. Case discussed with stroke neurology [place] who recommended observation and MRI. 11/09 Seems to move his left hand more today. Awaiting MRI. Echo pending. Vital signs stable. / No changes overnight. Patient moving his left arm, suspect back to baseline. MRI showed no acute stroke. / Patient sitting up in bed. No new complaints. Awaiting placement. / Patient talkative but given expressive aphasia, is not understandable. Occasionally clear meaningful word will be said. 11/13 No overnight event or new complaints. Awaiting placement. -11/15: Tentative plan is home with hospice tomorrow. -11/14: At this point, the patient would benefit from goals of care discussion with the . Social work and case management will continue to work on disposition -11/16: The patient was discharged home with hospice. Discharge diagnosis: Recurrent CVA, failure to thrive Time Spent with Patient Time attestation: Total time spent providing and/or coordinating discharge services: Time spent: Greater than 30 minutes EXAM Constitutional Vitals: Temp Pulse Resp BP Pulse Ox 97.8 F 64 20 103/61 99 11/16/21 02:45 11/16/21 02:45 11/16/21 02:45 11/16/21 02:45 11/16/21 02:45 General appearance: average body habitus Head Head exam: Present atraumatic, normal inspection and normocephalic Eye Eye exam: Present EOMI, normal appearance and PERRL; Absent conjunctival injection ENT ENT exam: Present mucous membranes dry and normal exam Neck Neck exam: Absent lymphadenopathy Respiratory Respiratory exam: Present normal respiratory exam and CTAB; Absent decreased breath sounds, respiratory distress or wheezes Cardiovascular Cardiovascular exam: Present normal rate and rhythm and RRR; Absent JVD GI/Abdominal GI/Abdominal exam: Present normal bowel sounds and soft; Absent diminished bowel sounds, distended, guarding, mass, rebound or tenderness Neurological Exam Neurological exam: Present alert Additional comments: Dense right hemiplegia and left apraxia. Right-sided facial droop Psychiatric Psychiatric exam: Present normal affect and normal mood Skin Skin exam: Present intact and warm; Absent erythema, pallor, petechiae or rash Discharge Plan Patient/Caregiver Discharge Instructions Activity: increase activity as tolerated Diet: Regular Diet Activity Restrictions/Additional Instructions: Diet per Speech Therapy Prescriptions: Continued famotidine 20 mg tablet 20 mg PO QDAY Qty: 90 3RF Eliquis 5 mg tablet 5 mg PO BID Qty: 180 3RF atorvastatin 40 mg tablet 40 mg PO DAILY Qty: 90 3RF bumetanide 1 mg tablet 1 mg PO DAILY Qty: 90 3RF carvedilol 6.25 mg tablet 6.25 mg PO DAILY Qty: 90 3RF tramadol 50 mg tablet 50 mg PO BID PRN (Reason: pain) Qty: 30 2RF furosemide 20 mg tablet 20 mg PO BID Qty: 180 3RF multivitamin capsule 1 cap PO QAM 0RF glucosamine sulfate [Glucosamine] 500 mg tablet 500 mg PO DAILY 0RF aspirin [Aspir-81] 81 mg tablet,delayed release (DR/EC) 81 mg PO QDAY Qty: 1 0RF levetiracetam [Keppra] 500 mg tablet 2,000 mg PO QHS 0RF potassium chloride 20 mEq tablet extended release 40 meq PO DAILY Qty: 1 0RF cetirizine [Zyrtec] 10 mg Tablet 10 mg PO DAILY 0RF ferrous sulfate [Iron (ferrous sulfate)] 325 mg (65 mg iron) Tablet 325 mg PO DAILY 0RF Other Ambulatory Orders: Wound Care Instructions (CONT) Location: None Selected Ordered By: Jolanta Barajas Follow Up Plan Follow up with: Gee Ochoa DO [Primary Care Provider] - Patient Disposition: Hospice - Home Prognosis: Undetermined Rehab Potential: Fair I certify that the patient requires SNF services: No Overall status at discharge: patient is not back to baseline Discharge Orders: Discharge Order (Routine); Ordered 11/16/21 Ordered By: Jolanta Barajas
== END 2021-11-16 12:20 | disposition hospice, home (50) ==
LOC: ED 14:17 → ICU 14:17 → MEDSUR 11-10 15:25
PROVIDERS: ADMIT Internal Medicine; ATTEND Student in an Organized Health Care Education/Training Program